=== PATIENT | female | born 1950 | race Caucasian/White ===

== ENCOUNTER → 2016-12-21 | Outpatient (CLI) | payer MEDICARE ==
--- NOTE | 2016-12-22 08:35 | MM ---
Reason for exam: screening (asymptomatic). Last mammogram was performed 1 year and 1 month ago. History: Patient is postmenopausal. Family history of breast cancer in sister at age 69 and breast cancer in mother at age 85. Physical Findings: A clinical breast exam by your physician is recommended on an annual basis and results should be correlated with mammographic findings. MG 3D Screening Mammo W/Cad Bilateral CC and MLO view(s) were taken. Prior study comparison: December 01, 2015, bilateral MG screening mammo w CAD. November 28, 2014, bilateral MG screening mammo w CAD. The breast tissue is extremely dense which could obscure a lesion on mammography. Stable benign calcifications. There is no discrete abnormality. No significant changes when compared with prior studies. ASSESSMENT: Benign, BI-RAD 2 RECOMMENDATION: Routine screening mammogram of both breasts in 1 year.
== END | disposition home or self-care (01) ==
LOC: RADMAMWWP 16:23
PROVIDERS: ATTEND Internal Medicine Geriatric Medicine
DX: Z12.31 Encounter for screening mammogram for malignant neoplasm of breast (principal)
CPT/HCPCS: 77063; G0202

== ENCOUNTER → 2017-01-25 | Outpatient (CLI) | payer MEDICARE ==
--- NOTE | 2017-01-26 13:42 | BD ---
EXAMINATION TYPE: MG DEXA axial skeleton. DATE OF EXAM: 01/25/2017 COMPARISON: 2014 CLINICAL HISTORY: osteoporosis Height: 5'2 Weight: 150 FRAX RISK QUESTIONS: Alcohol (3 or more units per day): no Family History (Parent hip fracture): no Glucocorticoids (More than 3mos): no (Ex: prednisone, prednisolone, methylprednisolone, dexamethasone, and hydrocortisone). History of Fracture in Adulthood: no Secondary Osteoporosis: 1. Type 1 Diabetes: no 2. Hyperthyroidism: no 3. Menopause before 45: no 4. Malnutrition: no 5. Chronic liver disease: no Rheumatoid Arthritis: no Current Tobacco Use: no RISK FACTORS HISTORY OF: Family History of Osteoporosis: Postmenopausal woman: MEDICATIONS: Thyroid Medications: Which medication: Levothyroxine How Lon years Additional Medications: blood pressure, Additional History: osteoporosis EXAM MEASUREMENTS: Bone mineral densitometry was performed using the SWEEPiO System. Bone mineral density as measured about the Lumbar spine is: ----- L1-L4(G/cm2): 1.131 T Score Values are as follows: ----- L2: -1.0 ----- L3: -0.4 ----- L4: 0.1 ----- L1-L4:-0.4 Bone mineral density has: Increased 1.2since study of: 11/28/2014 Bone mineral density about the R hip (g/cm2): 0.774 Bone mineral density about the L hip (g/cm2): 0.842 T Score values are as follows: -----R Neck: -1.9 -----L Neck: -1.4 -----R Total: -1.3 -----L Total: -0.8 Bone mineral density has: Increased 1.9% since study of: 11/28/2014 IMPRESSION: Osteopenia (T Score between -2.5 and -1 as noted by T score values : Josep Hips There is slightly increased risk of fracture and the patient may be considered for treatment. Re-Screen 2-5 years. NOTE: T-SCORE=SD OF THE YOUNG ADULT MEAN.
== END | disposition home or self-care (01) ==
LOC: RADBDWWP 12:32
PROVIDERS: ATTEND Internal Medicine Geriatric Medicine
DX: M85.851 Other specified disorders of bone density and structure, right thigh (principal); M85.852 Other specified disorders of bone density and structure, left thigh
CPT/HCPCS: 77080

== ENCOUNTER → 2017-07-17 | Outpatient (CLI) | payer MEDICARE ==
--- NOTE | 2017-07-17 17:45 | US ---
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 Family his tory of stroke. TECHNIQUE: Carotid duplex ultrasound examination. In direct upper criteria was utilized. 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 EXAM MEASUREMENTS: RIGHT: Peak Systolic Velocity (PSV) cm/sec ----- Right CCA: 54.6 ----- Right ICA: 67.4 ----- Right ECA: 62.3 ICA/CCA ratio: 1.2 RIGHT: End Diastole cm/sec ----- Right CCA: 16.2 ----- Right ICA: 24.2 ----- Right ECA: 11.5 LEFT: Peak Systolic Velocity (PSV) cm/sec ----- Left CCA: 53.9 ----- Left ICA: 56.8 ----- Left ECA: 40.3 ICA/CCA ratio: 1.1 LEFT: End Diastole cm/sec ----- Left CCA: 15.8 ----- Left ICA: 23.1 ----- Left ECA: 8.5 VERTEBRALS (direction of flow): Right Vertebral: Antegrade Left Vertebral: Antegrade IMPRESSION: No hemodynamically significant stenosis appreciated in either internal carotid artery. Criteria for Assigning % of Stenosis / Diameter reduction (Estimation based on the indirect measurements of the internal carotid artery velocities (ICA PSV). 1. Normal (no stenosis)=ICA PSV < 125 cm/s: ratio < 2.0: ICA EDV<40 cm/s. 2. Less than 50% stenosis=ICA PSV < 125 cm/s: ratio < 2.0: ICA EDV<40 cm/s. 3. 50 to 69% stenosis=ICA PSV of 125 to 230 cm/s: ration 2.0 ? 4.0: ICA EDV 40-100 cm/s. 4. Greater than 70% stenosis to near occlusion= ICA PSV > 230 cm/s: ratio > 4.0: ICA EDV > 100 cm/s. 5. Near occlusion= ICA PSV velocities may be low or undetectable: variable ratio and ICA EDV. 6. Total occlusion=unable to detect flow.
--- NOTE | 2017-07-18 10:09 | ECHOF ---
Referral Reason:Stenosis I65.23,I05.8 rheumatic mitral valve dz MEASUREMENTS -------- HEIGHT: 152.4 cm WEIGHT: 68.0 kg BP: 126/64 RVIDd: 2.6 cm (< 3.3) IVSd: 1.0 cm (0.6 - 1.1) LVIDd: 4.4 cm (3.9 - 5.3) LVPWd: 1.0 cm (0.6 - 1.1) IVSs: 1.4 cm LVIDs: 2.9 cm LVPWs: 1.5 cm LA Diam: 3.1 cm (2.7 - 3.8) LAESV Index (A-L): 26.05 ml/m Ao Diam: 3.2 cm (2.0 - 3.7) AV Cusp: 1.9 cm (1.5 - 2.6) MV EXCURSION: 10.738 mm (> 18.000) MV EF SLOPE: 51 mm/s (70 - 150) EPSS: 1.1 cm MV E Domenic: 0.66 m/s MV DecT: 353 ms MV A Domenic: 0.97 m/s MV E/A Ratio: 0.68 RAP: 5.00 mmHg RVSP: 19.65 mmHg FINDINGS -------- Sinus rhythm. This was a technically adequate study. The left ventricular size is normal. Left ventricular wall thickness is normal. Overall left vent ricular systolic function is normal with, an EF between 55 - 60 %. The right ventricle is normal in size. Normal LA size by volume 22+/-6 ml/m2. The right atrium is normal in size. The aortic valve is trileaflet and appears structurally normal. The mitral valve is normal. There is trace to mild mitral regurgitation. Mild tricuspid regurgitation present. Right ventricular systolic pressure is normal at < 35 mmHg. Trace/mild (physiologic) pulmonic regurgitation. The aortic root size is normal. Normal inferior vena cava with normal inspiratory collapse consistent with estimated right atrial pre ssure of 5 mmHg. There is no pericardial effusion. Hepatic cyst 7.8X6.8 cm CONCLUSIONS -------- 1. Sinus rhythm. 2. This was a technically adequate study. 3. The left ventricular size is normal. 4. Left ventricular wall thickness is normal. 5. Overall left ventricular systolic function is normal with, an EF between 55 - 60 %. 6. Normal LA size by volume 22+/-6 ml/m2. 7. The aortic valve is trileaflet and appears structurally normal. 8. There is trace to mild mitral regurgitation. 9. Mild tricuspid regurgitation present. 10. Right ventricular systolic pressure is normal at < 35 mmHg. 11. Trace/mild (physiologic) pulmonic regurgitation. 12. The aortic root size is normal. 13. Normal inferior vena cava with normal inspiratory collapse consistent with estimated right atrial pressure of 5 mmHg. 14. There is no pericardial effusion. 15. Hepatic cyst 7.8X6.8 cm STEREOPTIC PROJECTION TOPOGRAPHER: Sandra Mclaughlin RDCS
== END | disposition home or self-care (01) ==
LOC: RADECHMAIN 14:43
PROVIDERS: ATTEND Internal Medicine Geriatric Medicine
DX: I08.1 Rheumatic disorders of both mitral and tricuspid valves (principal); I65.23 Occlusion and stenosis of bilateral carotid arteries; Q61.01 Congenital single renal cyst
CPT/HCPCS: 93306; 93880

== ENCOUNTER → 2018-01-30 | Outpatient (CLI) | payer MEDICARE ==
--- NOTE | 2018-02-01 09:00 | MM ---
Reason for exam: screening (asymptomatic). Last mammogram was performed 1 year and 1 month ago. History: Patient is postmenopausal. Family history of breast cancer in sister at age 69 and breast cancer in mother at age 85. Physical Findings: A clinical breast exam by your physician is recommended on an annual basis and results should be correlated with mammographic findings. MG 3D Screening Mammo W/Cad Bilateral CC and MLO view(s) were taken. Prior study comparison: December 21, 2016, bilateral MG 3d screening mammo w/cad. December 01, 2015, bilateral MG screening mammo w CAD. The breast tissue is extremely dense which could obscure a lesion on mammography. No significant changes when compared with prior studies. ASSESSMENT: Benign, BI-RAD 2 RECOMMENDATION: Routine screening mammogram of both breasts in 1 year.
== END | disposition home or self-care (01) ==
LOC: RADMAMWWP 14:22
PROVIDERS: ATTEND Internal Medicine Geriatric Medicine
DX: Z12.31 Encounter for screening mammogram for malignant neoplasm of breast (principal)
CPT/HCPCS: 77063; 77067

== ENCOUNTER 2018-09-11 15:55 | Observation (INO) | payer MEDICARE ==
--- NOTE | 2018-09-11 16:25 | ED ---
General Adult HPI - General Chief complaint: Chest Pain Stated complaint: chest pain Time Seen by Provider: 09/11/18 16:06 Source: patient, EMS Mode of arrival: EMS Limitations: no limitations - History of Present Illness Initial comments: Dictation was produced using [employer] dictation software. please excuse any grammatical, word or spelling errors. Chief Complaint: 67-year-old female past medical history of hypertension and hypothyroidism presents with episode of chest pain. History of Present Illness: She is 67-year-old female with past medical history of hypertension and hypothyroidism. Patient states that at 2:45 PM she was having dinner. She then experienced a pressure-like sensation in her chest. She then became nauseated and had clammy feeling in her hands. Denies any diaphoresis but she did complain of sweaty palms. Denies any cardiac history. She states that the pain lasted for approximately 30 minutes. Denies any radiation to her arm shoulders or jaw. Patient has otherwise been feeling well. Denies any significant family cardiac history. EMS was called and patient was given aspirin transferred to the emergency department. Patient states that symptoms improved however she still has some slight discomfort. The ROS documented in this emergency department record has been reviewed and confirmed by me. Those systems with pertinent positive or negative responses have been documented in the HPI. All other systems are other negative and/or noncontributory. PHYSICAL EXAM: General Impression: Alert and oriented x3, not in acute distress HEENT: Normocephalic atraumatic, extra-ocular movements intact, pupils equal and reactive to light bilaterally, mucous membranes moist. Cardiovascular: Heart regular rate and rhythm, S1&S2 audible, no murmurs, rubs or gallops Chest: Lungs clear to auscultation bilaterally, no rhonchi, no wheeze, no rales Abdomen: Bowel sounds present, abdomen soft, non-tender, non-distended, no organomegaly Musculoskeletal: Pulses present and equal in all extremities, no peripheral edema Motor: no focal deficits noted Neurological: CN II-XII grossly intact, no focal motor or sensory deficits noted Skin: Intact with no visualized rashes Psych: Normal affect and mood ED course: 67-year-old female with ACS-type symptoms. Vital signs upon arrival are within acceptable limits. Patient has HPI concerning for ACS-type symptoms. EKG shows nonspecific changes. Laboratory evaluation obtained. Patient has mild hypokalemia of 3.4. Cardiac enzymes negative. Chest x-ray shows findings to support cardiogenic pulmonary edema. Patient hasn't normal prematurity peptide. Patient reevaluated and is pain-free at the moment. Repeat EKG was performed demonstrating nonspecific EKG changes. Patient really had received aspirin per EMS. Patient is moderate risk. I believe patient would benefit from observation admission or serial troponins and cardiology consultation. Patient is understandable and agreeable to disposition. EKG interpretation: Ventricular rate 68, normal sinus rhythm, AR interval 148, QRS 96, QTC 450. No AR prolongation, no QTC prolongation, there are no ST changes however there is T-wave inversion in aVL. - Related Data Home Medications Medication Instructions Recorded Confirmed ALPRAZolam [Xanax] 0.25 mg PO BID PRN 09/11/18 09/11/18 Cholecalciferol [Vitamin D3] 5,000 unit PO DAILY 09/11/18 09/11/18 Cyclobenzaprine [Flexeril] 10 mg PO TID PRN 09/11/18 09/11/18 Hydrochlorothiazide [Hydrodiuril] 12.5 mg PO DAILY 09/11/18 09/11/18 Ibuprofen [Advil] 200 mg PO Q6HR PRN 09/11/18 09/11/18 Lactobacillus Acidophilus 1 tab PO DAILY 09/11/18 09/11/18 [Acidophilus] Levothyroxine Sodium [Synthroid] 25 mcg PO DAILY 09/11/18 09/11/18 Losartan Potassium 50 mg PO DAILY 09/11/18 09/11/18 Naproxen 500 mg PO BID PRN 09/11/18 09/11/18 Allergies Allergy/AdvReac Type Severity Reaction Status Date / Time cefuroxime [From Ceftin] Allergy Unknown Verified 09/11/18 15:59 Review of Systems ROS Statement: Those systems with pertinent positive or pertinent negative responses have been documented in the HPI. ROS Other: All systems not noted in ROS Statement are negative. Past Medical History Past Medical History: Hypertension, Thyroid Disorder Additional Past Medical History / Comment(s): hypothyroidism, scoliosis, kyphosis, raynauds, arthritis. History of Any Multi-Drug Resistant Organisms: None Reported Past Surgical History: Hysterectomy Additional Past Surgical History / Comment(s): carpal david, ganglion cyst removed on wrist. Past Psychological History: No Psychological Hx Reported Smoking Status: Never smoker Past Alcohol Use History: Occasional Past Drug Use History: None Reported General Exam Limitations: no limitations Course Vital Signs 09/11/18 16:09 Temperature 98.1 F Pulse Rate 68 Respiratory 18 Rate Blood Pressure 153/81 O2 Sat by Pulse 97 Oximetry Medical Decision Making - Lab Data Result diagrams: 09/11/18 16:05 09/11/18 16:05 Lab Results 09/11/18 09/11/18 09/11/18 Range/Units 16:05 16:05 16:05 WBC 6.7 (3.8-10.6) k/uL RBC 3.89 (3.80-5.40) m/uL Hgb 12.7 (11.4-16.0) gm/dL Hct 36.8 (34.0-46.0) % MCV 94.7 (80.0-100.0) fL MCH 32.7 (25.0-35.0) pg MCHC 34.6 (31.0-37.0) g/dL RDW 13.1 (11.5-15.5) % Plt Count 237 (150-450) k/uL Neutrophils % 62 % Lymphocytes % 30 % Monocytes % 4 % Eosinophils % 2 % Basophils % 0 % Neutrophils # 4.1 (1.3-7.7) k/uL Lymphocytes # 2.0 (1.0-4.8) k/uL Monocytes # 0.3 (0-1.0) k/uL Eosinophils # 0.1 (0-0.7) k/uL Basophils # 0.0 (0-0.2) k/uL PT 9.8 (9.0-12.0) sec INR 0.9 (<1.2) APTT 21.6 L (22.0-30.0) sec Sodium 137 (137-145) mmol/L Potassium 3.4 L (3.5-5.1) mmol/L Chloride 101 (98-107) mmol/L Carbon Dioxide 29 (22-30) mmol/L Anion Gap 7 mmol/L BUN 15 (7-17) mg/dL Creatinine 0.64 (0.52-1.04) mg/dL Est GFR (CKD-EPI)AfAm >90 (>60 ml/min/1.73 sqM) Est GFR (CKD-EPI)NonAf >90 (>60 ml/min/1.73 sqM) Glucose 134 H (74-99) mg/dL Calcium 9.5 (8.4-10.2) mg/dL Magnesium 1.9 (1.6-2.3) mg/dL Total Bilirubin 0.7 (0.2-1.3) mg/dL AST 33 (14-36) U/L ALT 45 (9-52) U/L Alkaline Phosphatase 72 (38-126) U/L Troponin I (0.000-0.034) ng/mL NT-Pro-B Natriuret Pep pg/mL Total Protein 6.8 (6.3-8.2) g/dL Albumin 4.3 (3.5-5.0) g/dL Lipase 99 (23-300) U/L 09/11/18 09/11/18 Range/Units 16:05 16:05 WBC (3.8-10.6) k/uL RBC (3.80-5.40) m/uL Hgb (11.4-16.0) gm/dL Hct (34.0-46.0) % MCV (80.0-100.0) fL MCH (25.0-35.0) pg MCHC (31.0-37.0) g/dL RDW (11.5-15.5) % Plt Count (150-450) k/uL Neutrophils % % Lymphocytes % % Monocytes % % Eosinophils % % Basophils % % Neutrophils # (1.3-7.7) k/uL Lymphocytes # (1.0-4.8) k/uL Monocytes # (0-1.0) k/uL Eosinophils # (0-0.7) k/uL Basophils # (0-0.2) k/uL PT (9.0-12.0) sec INR (<1.2) APTT (22.0-30.0) sec Sodium (137-145) mmol/L Potassium (3.5-5.1) mmol/L Chloride (98-107) mmol/L Carbon Dioxide (22-30) mmol/L Anion Gap mmol/L BUN (7-17) mg/dL Creatinine (0.52-1.04) mg/dL Est GFR (CKD-EPI)AfAm (>60 ml/min/1.73 sqM) Est GFR (CKD-EPI)NonAf (>60 ml/min/1.73 sqM) Glucose (74-99) mg/dL Calcium (8.4-10.2) mg/dL Magnesium (1.6-2.3) mg/dL Total Bilirubin (0.2-1.3) mg/dL AST (14-36) U/L ALT (9-52) U/L Alkaline Phosphatase (38-126) U/L Troponin I <0.012 (0.000-0.034) ng/mL NT-Pro-B Natriuret Pep 54 pg/mL Total Protein (6.3-8.2) g/dL Albumin (3.5-5.0) g/dL Lipase (23-300) U/L Disposition Clinical Impression: Chest pain Disposition: ADMITTED IP TO THIS HOSP Condition: Fair Referrals: Shayne Severino MD [Primary Care Provider] - 1-2 days Decision Time: 18:22
[2018-09-11 16:33] LABS: Basophils % (A) 0 %; Eosinophils # (A) 0.1 k/uL (0-0.7); Eosinophils % (A) 2 %; HCT 36.8 % (34.0-46.0); HGB 12.7 gm/dL (11.4-16.0); Lymphocytes % (A) 30 %; MCH 32.7 pg (25.0-35.0); MCHC 34.6 g/dL (31.0-37.0); MCV 94.7 fL (80.0-100.0); Mean Platelet Volume 7.5; Monocytes # (A) 0.3 k/uL (0-1.0); Monocytes % (A) 4 %; Neutrophils # (A) 4.1 k/uL (1.3-7.7); Neutrophils % (A) 62 %; Platelet Count 237 k/uL (150-450); RBC 3.89 m/uL (3.80-5.40); RDW 13.1 % (11.5-15.5); WBC 6.7 k/uL (3.8-10.6)
[2018-09-11 16:41] LABS: ALT 45 U/L (9-52); AST 33 U/L (14-36); Albumin 4.3 g/dL (3.5-5.0); Alkaline Phosphatase 72 U/L (38-126); Anion Gap 7 mmol/L; Blood Urea Nitrogen 15 mg/dL (7-17); Calcium 9.5 mg/dL (8.4-10.2); Carbon Dioxide 29 mmol/L (22-30); Chloride 101 mmol/L (98-107); Glucose 134 mg/dL (74-99); Lipase 99 U/L (23-300); Magnesium 1.9 mg/dL (1.6-2.3); Potassium 3.4 mmol/L (3.5-5.1); Sodium 137 mmol/L (137-145); Total Bilirubin 0.7 mg/dL (0.2-1.3); Total Protein 6.8 g/dL (6.3-8.2)
[2018-09-11 16:49] LABS: INR 0.9 (<1.2); Prothrombin Time 9.8 sec (9.0-12.0)
--- NOTE | 2018-09-11 16:53 | XR ---
EXAMINATION: XR chest 2V DATE AND TIME: 09/11/2018 4:37 PM CLINICAL INDICATION: PHH; Chest Pain TECHNIQUE: Frontal and lateral radiographs COMPARISON: None FINDINGS: There is a fine reticular pattern of increased density throughout the lungs which silhouett es the pulmonary vasculature to a mild degree and is associated with occasional septal lines at the p eriphery. Changes are consistent with mild interstitial phase pulmonary edema. The lungs are negative for atelectasis or evidence of pneumonia. The pleural spaces are negative. The cardiac silhouette is widely enlarged. The remainder of the mediastinal silhouette is unremarkabl e. The skeletal structures and soft tissues are negative for acute findings. IMPRESSION: Mild interstitial phase pulmonary edema, presumably cardiogenic etiology.
[2018-09-11 17:01] LABS: Partial Thromboplastin Time 21.6 sec (22.0-30.0)
[2018-09-11] MEDS ORDERED: NITROGLYCERIN SL TABS 0.4 MG TAB SUBLINGUAL PRN (18:22)
[2018-09-11] MEDS ORDERED: ASPIRIN 81 MG PO STA (18:22)
[2018-09-11] MEDS ORDERED: CYCLOBENZAPRINE 10 MG TAB PO PRN (21:37)
[2018-09-11] MEDS ORDERED: ALPRAZolam 0.25 MG TAB PO PRN (21:37)
[2018-09-12 03:53] LABS: Cholesterol 194 mg/dL (<200); HDL Cholesterol 47 mg/dL (40-60); LDL Cholesterol,Calculated 112 mg/dL (0-99); Triglycerides 177 mg/dL (<150)
[2018-09-12] MEDS: HEPARIN SODIUM,PORCINE 5,000 UNIT/ML 1 ML VIAL SQ SCH ×2 (03:55→12:48)
[2018-09-12 04:06] VITALS: RESP 18
[2018-09-12] MEDS ORDERED: LEVOTHYROXINE 25 MCG TAB PO SCH (06:30)
[2018-09-12] MEDS ORDERED: CHOLECALCIFEROL 1,000 UNIT TAB PO SCH (09:00)
[2018-09-12] MEDS ORDERED: HYDROCHLOROTHIAZIDE 12.5 MG CAP PO SCH (09:00)
[2018-09-12] MEDS ORDERED: LOSARTAN 50 MG TAB PO SCH (09:00)
--- NOTE | 2018-09-12 09:27 | US ---
EXAMINATION TYPE: US gallbladder DATE OF EXAM: 09/12/2018 COMPARISON: NONE CLINICAL HISTORY: cp nausea after eating. Pain after eating, NPO EXAM MEASUREMENTS: Liver Length: 19.7 cm Gallbladder Wall: 0.2 cm CBD: 0.4 cm Right Kidney: 10.2 x 4.3 x 4.0 cm Pancreas: Appears echogenic in appearance, limited visualization of tail due to overlying bowel gas Liver: Appears enlarged and coarse. Multiple cystic appearing lesions visualized. Largest in right l obe - 1.3 x 1.1 x 1.0 cm. Largest on left - 7.1 x 8.0 x 6.9 cm. Second cystic appearing lesion on l eft - 2.9 x 3.6 x 2.7 cm Gallbladder: Echogenic focus with shadow - 0.8 cm. Small amount of sludge seen, best visualized LLD . Probable focal fatty infiltration around the gallbladder fossa. Evidence for sonographic Gusman's sign: neg CBD: wnl Right Kidney: wnl IMPRESSION: 1. Cholelithiasis and biliary sludge without sonographic findings of acute cholecystitis. Probable fo julia fatty infiltration is seen surrounding the gallbladder fossa. 2. Multiple simple appearing hepatic cysts and mild hepatomegaly.
--- NOTE | 2018-09-12 10:58 | P.CRDCN ---
History of Present Illness History of present illness: This is a pleasant 67-year-old female past medical history significant for hypertension, hypothyroidism and Raynaud's disease. She denies history of coronary artery disease and does not follow regularly with a health concierge. We have been asked to see her in consultation secondary to an episode of chest discomfort yesterday. She states she had a late lunch yesterday with family in town. They ate fried chicken and asparagus. Shortly after eating she felt an intense tight full feeling in her chest associated with nausea, diaphroesis and she states she became acutely pale. This persisted for 30 minutes without relief. She called ems and was given nitro, which did not take away pain. Ultimately discomfort lasted a couple of hours and slowly improved on its own. She has significant family history with both brothers and father had heart disease in their 50's. She was seen and examined resting comfortably in bed in no acute distress. Her chest discomfort has subsided. EKG reveals sinus mechanism with no acute ST or T wave abnormalities noted. Chest x-ray report is read as mild pulmonary edema however appears normal with no acute cardiopulmonary process. Laboratory data reviewed, cardiac enzymes negative 3, LDL 112, and T proBNP 54 and creatinine 0.64. Most recent echocardiogram obtained July 2017 revealed preserved left ventricular systolic function with ejection fraction 55-60%. Current cardiac medications include losartan 50 mg daily and hydrochlorothiazide 12.5 mg daily. At the time of my exam: CONSTITUTIONAL: Denies fever. Denies chills. EYES: Denies blurred vision. Denies vision changes. Denies eye pain. EARS, NOSE, MOUTH & THROAT: Denies headache. Denies sore throat. Denies ear pain. CARDIOVASCULAR: Denies chest pain. Denies shortness of breath. Denies orthopnea. Denies PND. Denies palpitations. RESPIRATORY: Denies cough. GASTROINTESTINAL: Denies abdominal pain. Denies diarrhea. Denies constipation. Denies nausea. Denies vomiting. MUSCULOSKELETAL: Denies myalgias. INTEGUMENTARY: Denies pruitis. Denies rash. NEUROLOGIC: Denies numbness. Denies tingling. Denies weakness. PSYCHIATRIC: Denies anxiety. Denies depression. ENDOCRINE: Denies fatigue. Denies weight change. Denies polydipsia. Denies polyurina. GENITOURINARY: Denies burning, hematuria or urgency with micturation. HEMATOLOGIC: Denies history of anemia. Denies bleeding. Blood pressure 133/79 heart rate 64 afebrile maintaining oxygen saturation on room air GENERAL: This is a 67-year-old female in no apparent distress at the time of my examination. HEENT: Head is atraumatic, normocephalic. Pupils are equal, round. Sclerae anicteric. Conjunctivae are clear. Mucous membranes of the mouth are moist. Neck is supple. There is no jugular venous distention. No carotid bruit is heard. LUNGS: Clear to auscultation no wheezes, rales or rhonchi. No chest wall te nderness is noted on palpation or with deep breathing. HEART: Regular rate and rhythm without murmurs, rubs or gallops. S1 and S2 heard. ABDOMEN: Soft, nontender. Bowel sounds are heard. No organomegaly noted. EXTREMITIES: No evidence of peripheral edema and no calf tenderness noted. VASCULAR: Radial and dorsalis pedis pulses palpated, no evidence of clubbing. NEUROLOGIC: Patient is awake, alert and oriented x3. ASSESSMENT Chest pain, atypical for angina. Possibly associated to an acute gallbladder attack. An acute coronary event has been ruled out. Hypertension Hypothyroidism Significant family history for premature coronary artery disease PLAN An coronary event has been ruled out. Obtain 2-D echocardiogram and Doppler study to assess cardiac structure and function. Check an ultrasound of her gallbladder. Perform stress echocardiogram to assess for stress-induced cardiac ischemia. Thank you kindly for this consultation. Nurse Practitioner note has been reviewed, I agree with a documented findings and plan of care. Patient was seen and examined. Past Medical History Past Medical History: Hypertension, Thyroid Disorder Additional Past Medical History / Comment(s): hypothyroidism, scoliosis, kyphosis, raynauds, arthritis. History of Any Multi-Drug Resistant Organisms: None Reported Past Surgical History: Hysterectomy Additional Past Surgical History / Comment(s): carpal david, ganglion cyst removed on wrist. Past Psychological History: No Psychological Hx Reported Smoking Status: Never smoker Past Alcohol Use History: Occasional Past Drug Use History: None Reported Medications and Allergies Home Medications Medication Instructions Recorded Confirmed Type ALPRAZolam [Xanax] 0.25 mg PO BID PRN 09/11/18 09/11/18 History Cholecalciferol [Vitamin D3] 5,000 unit PO DAILY 09/11/18 09/11/18 History Cyclobenzaprine [Flexeril] 10 mg PO TID PRN 09/11/18 09/11/18 History Hydrochlorothiazide [Hydrodiuril] 12.5 mg PO DAILY 09/11/18 09/11/18 History Ibuprofen [Advil] 200 mg PO Q6HR PRN 09/11/18 09/11/18 History Lactobacillus Acidophilus 1 tab PO DAILY 09/11/18 09/11/18 History [Acidophilus] Levothyroxine Sodium [Synthroid] 25 mcg PO DAILY 09/11/18 09/11/18 History Losartan Potassium 50 mg PO DAILY 09/11/18 09/11/18 History Naproxen 500 mg PO BID PRN 09/11/18 09/11/18 History Allergies Allergy/AdvReac Type Severity Reaction Status Date / Time cefuroxime [From Ceftin] Allergy Unknown Verified 09/11/18 15:59 Physical Exam Vitals: Vital Signs Temp Pulse Pulse Resp BP BP Pulse Ox 09/12/18 07:15 98.1 F 64 18 133/79 96 09/12/18 04:05 98.3 F 65 18 143/80 96 09/12/18 03:40 77 17 09/12/18 00:26 98 F 74 18 160/79 96 09/12/18 00:00 65 17 09/11/18 20:00 17 09/11/18 19:41 98.4 F 74 18 184/87 97 09/11/18 18:51 76 18 150/83 96 09/11/18 18:40 18 09/11/18 16:09 98.1 F 68 18 153/81 97 Intake and Output 09/11/18 09/12/18 09/12/18 22:59 06:59 14:59 Other: Voiding Method Toilet Toilet # Voids 1 1 Weight 67.585 kg Results 09/11/18 16:05 09/11/18 16:05 Cardiac Enzymes 09/11/18 09/11/18 09/11/18 Range/Units 16:05 16:05 22:51 AST 33 (14-36) U/L Troponin I <0.012 <0.012 (0.000-0.034) ng/mL 09/12/18 Range/Units 04:15 AST (14-36) U/L Troponin I <0.012 (0.000-0.034) ng/mL Coagulation 09/11/18 Range/Units 16:05 PT 9.8 (9.0-12.0) sec APTT 21.6 L (22.0-30.0) sec Lipids 09/11/18 Range/Units 16:05 Triglycerides 177 H (<150) mg/dL Cholesterol 194 (<200) mg/dL HDL Cholesterol 47 (40-60) mg/dL CBC 09/11/18 Range/Units 16:05 WBC 6.7 (3.8-10.6) k/uL RBC 3.89 (3.80-5.40) m/uL Hgb 12.7 (11.4-16.0) gm/dL Hct 36.8 (34.0-46.0) % Plt Count 237 (150-450) k/uL Comprehensive Metabolic Panel 09/11/18 Range/Units 16:05 Sodium 137 (137-145) mmol/L Potassium 3.4 L (3.5-5.1) mmol/L Chloride 101 (98-107) mmol/L Carbon Dioxide 29 (22-30) mmol/L BUN 15 (7-17) mg/dL Creatinine 0.64 (0.52-1.04) mg/dL Glucose 134 H (74-99) mg/dL Calcium 9.5 (8.4-10.2) mg/dL AST 33 (14-36) U/L ALT 45 (9-52) U/L Alkaline Phosphatase 72 (38-126) U/L Total Protein 6.8 (6.3-8.2) g/dL Albumin 4.3 (3.5-5.0) g/dL Current Medications Generic Name Dose Route Start Last Admin Trade Name Freq PRN Reason Stop Dose Admin Alprazolam 0.25 mg 09/11/18 21:37 Xanax PO BID PRN Anxiety Cholecalciferol 5,000 unit 09/12/18 09:00 Vitamin D3 PO DAILY REPLACED BY [facility] Cyclobenzaprine HCl 10 mg 09/11/18 21:37 Flexeril PO TID PRN Muscle Spasm Heparin Sodium (Porcine) 5,000 unit 09/12/18 00:00 09/12/18 03:55 Heparin SQ Not Given Q8HR MICHAEL Hydrochlorothiazide 12.5 mg 09/12/18 09:00 Hydrodiuril PO DAILY REPLACED BY [facility] Levothyroxine Sodium 25 mcg 09/12/18 06:30 09/12/18 06:21 Synthroid PO 25 mcg DAILY@0630 MICHAEL Administration Losartan Potassium 50 mg 09/12/18 09:00 Cozaar PO DAILY MICHAEL Nitroglycerin 0.4 mg 09/11/18 18:22 Nitrostat SUBLINGUAL Q5M PRN Chest Pain Intake and Output 09/11/18 09/12/18 09/12/18 22:59 06:59 14:59 Other: Voiding Method Toilet Toilet # Voids 1 1 Weight 67.585 kg 09/11/18 16:05 09/11/18 16:05
--- NOTE | 2018-09-12 12:53 | ECHOS ---
STRESS ECHOCARDIOGRAM DATE OF SERVICE: 09/12/2018 INDICATIONS: Chest pain. MEDICATIONS: BASELINE HEART RATE: 65 BASELINE BLOOD PRESSURE: 134/63 MAXIMUM HEART RATE: 156 MAXIMUM BLOOD PRESSURE: 181/68 85% MPHR: 131 100% MPHR: 154 METS: 7.7 MAXIMUM STAGE REACHED: III TOTAL EXERCISE TIME: 6 minutes and 30 seconds. CLINICAL INFORMATION: Patient was exercised for a total period of 6 minutes and 30 seconds a peak heart rate of 156 was achieved. Maximum blood pressure of 181/68 mmHg was noted. Resting EKG shows normal sinus rhythm with normal DC interval and QRS duration and normal ST-T waves. No ST-segment depression suggestive of ischemia is noted. Occasional PVCs and PACs were noted. The baseline echocardiographic images reveal normal left ventricular chamber size with normal left ventricular systolic function. In the immediate postexercise period, normal increase in the wall thickness and contractility is noted. FINAL IMPRESSION: This stress echocardiographic study is negative for stress-induced ischemia. EKG portion of the stress is not suggestive of ischemia. Patient did not complain of any chest pain during the test. The patient's exercise tolerance is normal. MMODL / IJN: [id number] /
[2018-09-12 13:05] VITALS: BP 135/82; PULSE 67; TEMP 98.3
--- NOTE | 2018-09-12 14:34 | P.HPIM ---
History of Present Illness H&P Date: 09/12/18 HISTORY AND PHYSICAL AND DISCHARGE SUMMARY: This is a 67-year-old female patient of Dr. Severino with past medical history of hypertension, hypothyroidism, scoliosis, Raynaud's, osteoarthritis obstructive sleep apnea on CPAP, generalized anxiety disorder. Patient developed chest discomfort after she had lunch and went into the kitchen. By the time EMS arrived, pain was starting to go away. She did take an aspirin before they arrived and nitroglycerin with EMS. Her pain is gone at this point. She describes it as a pressure. Patient also relates that she has been on [employer] for the past month. She denies any cardiac history and does not follow with a transmitter engineer in charge. Patient came into [facility] for evaluation. EKG was sinus rhythm with no acute ST-T wave changes. Chest x-ray revealed mild interstitia pulmonary edema presumably cardiogenic etiology. The patient was placed in the observation unit and cardiology consult requested.. CBC is within normal limits. Potassium 3.4, blood sugar 134. Troponins of the negative on 3 draws. Triglycerides 177, cholesterol 194, LDL 112, HDL 47. Lipase 99. Liver function tests within normal limits. She has been afebrile. Gallbladder ultrasound reveals cholelithiasis and biliary sludge without evidence of acute cholecystitis. Probable focal fatty infiltration surrounding the gallbladder fossa. Multiple simple appearing hepatic cyst and mild hepatomegaly. Echocardiogram reveals ejection fraction of Patient has been cleared for discharge by cardiology and will be discharged home today in stable condition. Discharge Medication List ALPRAZolam [Xanax] 0.25 mg PO BID PRN 09/11/18 [History] Cholecalciferol [Vitamin D3] 5,000 unit PO DAILY 09/11/18 [History] Cyclobenzaprine [Flexeril] 10 mg PO TID PRN 09/11/18 [History] Hydrochlorothiazide [Hydrodiuril] 12.5 mg PO DAILY 09/11/18 [History] Lactobacillus Acidophilus [Acidophilus] 1 tab PO DAILY 09/11/18 [History] Levothyroxine Sodium [Synthroid] 25 mcg PO DAILY 09/11/18 [History] Losartan Potassium 50 mg PO DAILY 09/11/18 [History] Aspirin EC [Ecotrin Low Dose] 81 mg PO DAILY #30 tablet. 09/12/18 [Rx] Celecoxib [CeleBREX] 100 mg PO BID #60 cap 09/12/18 [Rx] Review of Systems All systems: negative Constitutional: Denies anorexia, Denies chills, Denies fatigue, Denies fever, Denies lethargy, Denies malaise, Denies poor appetite, Denies weakness Eyes: denies blurred vision, denies pain Ears, nose, mouth and throat: Denies dysphagia, Denies headache, Denies sore throat, Denies vertigo Cardiovascular: Reports chest pain, Denies decreased exercise tolerance, Denies dyspnea on exertion, Denies lightheadedness, Denies palpitations, Denies shortness of breath, Denies syncope Respiratory: Denies cough, Denies cough with sputum, Denies dyspnea, Denies excessive sputum, Denies hemoptysis, Denies home oxygen, Denies wheezing Gastrointestinal: Denies abdominal pain, Denies diarrhea, Denies loss of appetite, Denies nausea, Denies vomiting Genitourinary: Denies dysuria, Denies hematuria Musculoskeletal: Denies frequent falls, Denies gait dysfunction, Denies myalgias Integumentary: Denies pruritus, Denies rash, Denies wounds Neurological: Denies numbness, Denies weakness Psychiatric: Denies anxiety, Denies depression Endocrine: Denies fatigue, Denies weight change Past Medical History Past Medical History: Hypertension, Thyroid Disorder Additional Past Medical History / Comment(s): hypothyroidism, scoliosis, kyphosis, raynauds, OA, SCOTTIE on CPAP. History of Any Multi-Drug Resistant Organisms: None Reported Past Surgical History: Hysterectomy Additional Past Surgical History / Comment(s): carpal david, ganglion cyst removed on wrist. Past Psychological History: No Psychological Hx Reported, Anxiety Smoking Status: Never smoker Past Alcohol Use History: Occasional Additional Past Alcohol Use History / Comment(s): The patient was smoking 27 years ago. She denies any illicit drug use. She drinks alcohol about 3 times per week. She was at home with her . She does have a CPAP. No oxygen or nebulizer. No devices for ambulation. Past Drug Use History: None Reported - Past Family History Father Additional Family Medical History / Comment(s): Father at age 54 from a myocardial infarction. Mother Additional Family Medical History / Comment(s): Mother at age 90 from old age. She had history of hypertension and breast cancer. Brother(s) Additional Family Medical History / Comment(s): The patient has 2 brothers with coronary artery disease and one has suffered from a stroke. Sister(s) Additional Family Medical History / Comment(s): Patient has one sister with history of breast cancer and hypertension. Patient has 3 sons with no major medical problems. Medications and Allergies Home Medications Medication Instructions Recorded Confirmed Type ALPRAZolam [Xanax] 0.25 mg PO BID PRN 09/11/18 09/11/18 History Cholecalciferol [Vitamin D3] 5,000 unit PO DAILY 09/11/18 09/11/18 History Cyclobenzaprine [Flexeril] 10 mg PO TID PRN 09/11/18 09/11/18 History Hydrochlorothiazide [Hydrodiuril] 12.5 mg PO DAILY 09/11/18 09/11/18 History Lactobacillus Acidophilus 1 tab PO DAILY 09/11/18 09/11/18 History [Acidophilus] Levothyroxine Sodium [Synthroid] 25 mcg PO DAILY 09/11/18 09/11/18 History Losartan Potassium 50 mg PO DAILY 09/11/18 09/11/18 History Aspirin EC [Ecotrin Low Dose] 81 mg PO DAILY #30 tablet. 09/12/18 Rx Celecoxib [CeleBREX] 100 mg PO BID #60 cap 09/12/18 Rx Allergies Allergy/AdvReac Type Severity Reaction Status Date / Time cefuroxime [From Ceftin] Allergy Unknown Verified 09/11/18 15:59 Physical Exam Vitals: Vital Signs Temp Pulse Pulse Resp BP BP Pulse Ox 09/12/18 07:15 98.1 F 64 18 133/79 96 09/12/18 04:05 98.3 F 65 18 143/80 96 09/12/18 03:40 77 17 09/12/18 00:26 98 F 74 18 160/79 96 09/12/18 00:00 65 17 09/11/18 20:00 17 09/11/18 19:41 98.4 F 74 18 184/87 97 09/11/18 18:51 76 18 150/83 96 09/11/18 18:40 18 09/11/18 16:09 98.1 F 68 18 153/81 97 Intake and Output 09/11/18 09/12/18 09/12/18 22:59 06:59 14:59 Other: Voiding Method Toilet Toilet Toilet # Voids 1 1 Weight 67.585 kg Gen: This is a 67-year-old female. She is resting in bed and appears to be comfortable and in no acute distress. HEENT: Head is atraumatic, normocephalic. Pupils equal, round. Sclerae is anicteric. NECK: Supple. No JVD. No lymphadenopathy. No thyromegaly. LUNGS: Clear to auscultation. No wheezes or rhonchi. No intercostal retr actions. HEART: Regular rate and rhythm. No murmur. ABDOMEN: Soft. Bowel sounds are present. No masses. No tenderness. EXTREMITIES: No pedal edema. No calf tenderness. NEUROLOGICAL: Patient is awake, alert and oriented x3. Cranial nerves 2 through 12 are grossly intact. Results CBC & Chem 7: 09/11/18 16:05 09/11/18 16:05 Labs: Abnormal Lab Results - Last 24 Hours (Table) 09/11/18 09/11/18 09/11/18 Range/Units 16:05 16:05 16:05 APTT 21.6 L (22.0-30.0) sec Potassium 3.4 L (3.5-5.1) mmol/L Glucose 134 H (74-99) mg/dL Triglycerides 177 H (<150) mg/dL LDL Cholesterol, Calc 112 H (0-99) mg/dL Thrombosis Risk Factor Assmnt - Choose All That Apply Each Factor Represents 1 point: Obesity (BMI >25) Each Risk Factor Represents 2 Points: Age 61-74 years Thrombosis Risk Factor Assessment Total Risk Factor Score: 3 Thrombosis Risk Factor Assessment Level: Moderate Risk Assessment and Plan Plan: 1. Chest pain. Troponins of been negative. Echocardiogram as above. Cardiology consult appreciated. Acute coronary syndrome ruled out. Chest pain most likely secondary to gallstones. Patient recommended for low-fat diet and if she has any persistent symptoms, follow up with her PCP for referral to general surgeon. 2. Hypertension. Continue losartan 50 mg daily and hydrochlorothiazide 12.5 mg daily. 3. Hypothyroidism. Continue levothyroxine 25 g daily. 4. Vitamin D deficiency. Continue supplement. 5. Generalized anxiety disorder. Continue Xanax 0.25 mg twice daily as needed. 6. DVT prophylaxis. Heparin subcu. Patient placed in the observation unit. Discharge plan: Return home Impression and plan of care have been directed as dictated by the signing physician. Macy Gómez nurse practitioner acting as scribe for signing physician.
== END 2018-09-12 14:40 | disposition home or self-care (01) ==
LOC: EC 15:55 → 1SOBS 18:22
PROVIDERS: ADMIT Family Medicine; ATTEND Family Medicine
DX: R07.89 Other chest pain (principal); I10 Essential (primary) hypertension; E03.9 Hypothyroidism, unspecified; E55.9 Vitamin D deficiency, unspecified; E87.6 Hypokalemia; F41.1 Generalized anxiety disorder; M41.9 Scoliosis, unspecified; I73.00 Raynaud's syndrome without gangrene; K80.20 Calculus of gallbladder without cholecystitis without obstruction; K76.89 Other specified diseases of liver; G47.33 Obstructive sleep apnea (adult) (pediatric); Z88.1 Allergy status to other antibiotic agents; Z90.710 Acquired absence of both cervix and uterus; Z79.899 Other long term (current) drug therapy; Z79.890 Hormone replacement therapy; Z79.82 Long term (current) use of aspirin; Z99.89 Dependence on other enabling machines and devices; Z82.49 Family history of ischemic heart disease and other diseases of the circulatory system; Z82.3 Family history of stroke; Z80.3 Family history of malignant neoplasm of breast
CPT/HCPCS: 96372; 99285; 36415; 93005; 83880; 80061; 80053; 83690; 83735; 84484 ×2; 85025; 85610; 85730; 71046; 76705; G0378 ×2; C8930; J1644; 93351

== ENCOUNTER 2018-12-14 08:36 | Day surgery (SDC) | payer MEDICARE ==
[2018-12-13 08:50] VITALS: BMI 28.3
[~2018-12-14 08:36] MED LIST: DEXAMETHASONE SOD PHOSPHATE 10 MG/ML 1 ML VIAL IV ONE; HEPARIN SODIUM,PORCINE 5,000 UNIT/ML 1 ML VIAL SQ ONE; LACTATED RINGERS 1,000 ML IV SCH; MIDAZOLAM 2 MG/2 ML VIAL IV PRN; ONDANSETRON 4 MG/2 ML VIAL IVP ONE; SCOPOLAMINE 1.5MG/72HR PATCH TRANSDERM ONE; ceFAZolin IN SWFI 2 GM/20 ML SYRINGE IVP ONE; fentaNYL (PF) 50 MCG/ML 2 ML AMP IV PRN
[2018-12-14] MEDS ORDERED: CLINDAMYCIN 900 MG in DEXTROSE 5% IN WATER 50 ML IVPB ONE ×2 (09:15)
[2018-12-14] MEDS ORDERED: GENTAMICIN 270 MG in SODIUM CHLORIDE 0.9% 100 ML IVPB ONE (09:15)
[2018-12-14] MEDS ORDERED: BUPIVACAINE (PF) 0.25% 30 ML VIAL SQ ONE ×3 (10:03→10:29)
[2018-12-14] MEDS ORDERED: NEOSTIGMINE 1 MG/ML 10 ML VIAL ONE (10:04)
[2018-12-14] MEDS ORDERED: MIDAZOLAM 2 MG/2 ML VIAL ONE (10:04)
[2018-12-14] MEDS ORDERED: KETOROLAC 30 MG/ML 1 ML VIAL ONE (10:04)
[2018-12-14] MEDS ORDERED: ROCURONIUM BROMIDE 10 MG/ML 10 ML VIAL IV ONE (10:04)
[2018-12-14] MEDS ORDERED: HYDROmorphone (PF) 1 MG/ML ONE (10:04)
[2018-12-14] MEDS ORDERED: GLYCOPYRROLATE 0.2 MG/ML 2 ML VIAL ONE (10:04)
[2018-12-14] MEDS ORDERED: fentaNYL (PF) 50 MCG/ML 2 ML AMP ONE (10:04)
[2018-12-14] MEDS ORDERED: SUCCINYLCHOLINE CHLORIDE 100 MG/5 ML SYR IV ONE (10:04)
[2018-12-14] MEDS ORDERED: LIDOCAINE 1% INJ 10MG/ML (20 ML MDV) ONE (10:04)
[2018-12-14] MEDS ORDERED: PROPOFOL 10 MG/ML 20 ML VIAL IV ONE (10:04)
[2018-12-14] MEDS ORDERED: LACTATED RINGERS 1,000 ML IV ONE (10:58)
[2018-12-14] MEDS ORDERED: HYDROcodone/APAP 5-325MG 1 EACH TAB PO PRN (11:05)
[2018-12-14] MEDS ORDERED: NALOXONE 0.4 MG/ML 1 ML VIAL IV PRN (11:05)
--- NOTE | 2018-12-14 11:07 | P.OP ---
Date of Procedure: 12/14/18 Procedure(s) Performed: PREOPERATIVE DIAGNOSIS: Chronic cholecystitis POSTOPERATIVE DIAGNOSIS: Same PROCEDURE: Laparoscopic cholecystectomy SURGEON: Antwan EBL: Minimal see anesthesia record ANESTHESIA: Gen. COMPLICATIONS: None OPERATIVE PROCEDURE: The patient was brought and placed on the operating room table in the supine position. The patient was placed under general anesthesia at that time. The abdomen was prepped and draped in the usual sterile fashion. A small vertical infraumbilical incision was made. The fascia was grasped with the Koby forceps. The fascia was retracted anteriorly. The Veress needle was advanced into the peritoneal cavity. The saline drop test was normal. Insufflation took place up to 15 mmHg. A 5 mm optical trocar was advanced and the peritoneal cavity. 2 additional 5 mm trochars were placed in the right upper quadrant under direct visualization. A 12 mm trocar was advanced into the epigastric incision site. The gallbladder was retracted superiorly and laterally. The peritoneum overlying the infundibulum was bluntly dissected. The patient's cystic duct was visualized. The junction between the cystic duct common and hepatic duct was identified. The cystic duct was then divided after placement of 3 12 mm clips on the patient's side and one on the specimen side. The cystic artery was identified and clipped as well. A small vessel was seen along the gallbladder fossa and clipped as well. The gallbladder was then removed from the liver bed using electrocautery. The gallbladder was then removed from the epigastric trocar site with an Endo Catch bag. The gallbladder fossa was irrigated with saline. There was no evidence of any bleeding or biliary drainage seen. The fascia at the 12 millimeter site was closed using a Enmanuel-Giovanna 0 Vicryl stitch. The trochars were then removed. The skin at all 4 sites was closed using a 4-0 Monocryl stitch. Skin glue was utilized on the incision sites. At the end of this procedure the sponge and needle counts were correct. DISPOSITION: Stable to the recovery room
[2018-12-14 11:21] VITALS: TEMP 97.6
[2018-12-14 12:39] VITALS: RESP 16
[2018-12-14 13:25] VITALS: BP 146/76; PULSE 54
== END 2018-12-14 14:04 | disposition home or self-care (01) ==
LOC: OR 08:36
PROVIDERS: ATTEND Surgery
DX: K80.10 Calculus of gallbladder with chronic cholecystitis without obstruction (principal); I10 Essential (primary) hypertension; E03.9 Hypothyroidism, unspecified; E78.5 Hyperlipidemia, unspecified; I73.00 Raynaud's syndrome without gangrene; M19.90 Unspecified osteoarthritis, unspecified site; M41.9 Scoliosis, unspecified; G47.30 Sleep apnea, unspecified; Z90.710 Acquired absence of both cervix and uterus; Z87.891 Personal history of nicotine dependence; Z79.890 Hormone replacement therapy; Z79.899 Other long term (current) drug therapy; Z79.1 Long term (current) use of non-steroidal anti-inflammatories (NSAID); Z88.1 Allergy status to other antibiotic agents; Z88.5 Allergy status to narcotic agent; Z91.09 Other allergy status, other than to drugs and biological substances; Z80.3 Family history of malignant neoplasm of breast; Z83.3 Family history of diabetes mellitus; Z82.49 Family history of ischemic heart disease and other diseases of the circulatory system
CPT/HCPCS: 47562; 88304; J2250; J1644; J1100; J2710; J2405; J2001; J3010; J1885; J1170; J0330; J2704

== ENCOUNTER → 2019-01-02 | Outpatient (CLI) | payer MEDICARE ==
--- NOTE | 2019-01-02 12:17 | XR ---
EXAMINATION TYPE: XR ankle complete RT DATE OF EXAM: 01/02/2019 CLINICAL HISTORY: Right ankle pain and swelling with no known injury. TECHNIQUE: Frontal, lateral and oblique images of the right ankle are obtained. COMPARISON: None. FINDINGS: There is no acute fracture/dislocation evident in the right ankle. The ankle mortise appe ars within normal limits. Very small plantar heel spur is noted. The overlying soft tissue appears u nremarkable. IMPRESSION: There is no acute fracture or dislocation in the right ankle.
== END | disposition home or self-care (01) ==
LOC: RADXRMAIN 11:15
PROVIDERS: ATTEND Internal Medicine Geriatric Medicine
DX: M25.571 Pain in right ankle and joints of right foot (principal)

== ENCOUNTER → 2019-03-26 | Outpatient (CLI) | payer MEDICARE ==
--- NOTE | 2019-03-28 10:52 | MM ---
Reason for exam: screening (asymptomatic). Last mammogram was performed 1 year and 2 months ago. History: Patient is postmenopausal. Family history of breast cancer in sister at age 69 and breast cancer in mother at age 85. Physical Findings: A clinical breast exam by your physician is recommended on an annual basis and results should be correlated with mammographic findings. MG 3D Screening Mammo W/Cad Bilateral CC and MLO view(s) were taken. Prior study comparison: January 30, 2018, bilateral MG 3d screening mammo w/cad. December 21, 2016, bilateral MG 3d screening mammo w/cad. The breast tissue is extremely dense which could obscure a lesion on mammography. No significant changes when compared with prior studies. ASSESSMENT: Benign, BI-RAD 2 RECOMMENDATION: Routine screening mammogram of both breasts in 1 year.
== END | disposition home or self-care (01) ==
LOC: RADMAMWWP 13:13
PROVIDERS: ATTEND Internal Medicine Geriatric Medicine
DX: Z12.31 Encounter for screening mammogram for malignant neoplasm of breast (principal)
CPT/HCPCS: 77063; 77067

== ENCOUNTER → 2020-08-03 | Outpatient (CLI) | payer MEDICARE ==
--- NOTE | 2020-08-03 19:26 | BD ---
EXAMINATION TYPE: Axial Bone Density DATE OF EXAM: 08/03/2020 COMPARISON: 01/25/2017 CLINICAL HISTORY: Postmenopausal screening Height: 60 IN Weight: 167 LBS RISK FACTORS HISTORY OF: Family History of Osteoporosis: YES MOTHER Active: YES Postmenopausal woman: PARTIAL HYST AGE 48 Take estrogen and/or progesterone medications: NOT NOW How lon YEARS Lost more than 2 inches in height since high school: YES 3" MEDICATIONS: Thyroid Medications: YES Which medication: Levothyroxine How Lon+ YEARS Osteoporosis Medications: NOT NOW Which medication: Fosamax How Lon YEARS Additional Medications: VIT D, BLOOD PRESSURE MEDS, EXAM MEASUREMENTS: Bone mineral densitometry was performed using the [employer] System. Bone mineral density as measured about the Lumbar spine is: ----- L1-L4(G/cm2): 1.141 T Score Values are as follows: ----- L2: -0.9 ----- L3: 0.0 ----- L4: -0.1 ----- L1-L4: -0.3 Bone mineral density has: Increased 0.8% since study of: 01/25/2017 Bone mineral density about the R hip (g/cm2): 0.760 Bone mineral density about the L hip (g/cm2): 0.841 T Score values are as follows: -----R Neck: -2.0 -----L Neck: -1.4 -----R Total: -1.3 -----L Total: -0.6 Bone mineral density has: Increased 2.3% since study of: 01/25/2017 IMPRESSION: Osteopenia (T Score between -2.5 and -1). There is slightly increased risk of fracture and the patient may be considered for treatment. Re-Screen 2-5 years. NOTE: T-SCORE=SD OF THE YOUNG ADULT MEAN.
--- NOTE | 2020-08-04 14:59 | MM ---
Reason for exam: screening (asymptomatic). Last mammogram was performed 1 year and 4 months ago. History: Patient is postmenopausal. Family history of breast cancer in sister at age 69 and breast cancer in mother at age 85. Took hormonal contraceptives for 20 years. Physical Findings: A clinical breast exam by your physician is recommended on an annual basis and results should be correlated with mammographic findings. MG 3D Screening Mammo W/Cad Bilateral CC and MLO view(s) were taken. Prior study comparison: March 26, 2019, bilateral MG 3d screening mammo w/cad. January 30, 2018, bilateral MG 3d screening mammo w/cad. The breast tissue is extremely dense which could obscure a lesion on mammography. No significant changes when compared with prior studies. ASSESSMENT: Benign, BI-RAD 2 RECOMMENDATION: Routine screening mammogram of both breasts in 1 year.
== END ==
LOC: RADMAMWWP 13:51
PROVIDERS: ATTEND Internal Medicine Geriatric Medicine
DX: Z12.31 Encounter for screening mammogram for malignant neoplasm of breast (principal); M85.89 Other specified disorders of bone density and structure, multiple sites; Z78.0 Asymptomatic menopausal state; Z80.3 Family history of malignant neoplasm of breast
CPT/HCPCS: 77063; 77067; 77080

== ENCOUNTER → 2020-10-08 | Outpatient (CLI) | payer MEDICARE ==
--- NOTE | 2020-10-08 19:55 | CONS ---
CONSULTATION DATE OF SERVICE: 10/08/2020 This 69-year-old lady has been evaluated in Sleep Center for obstructive sleep apnea- hypopnea syndrome. HISTORY OF PRESENT ILLNESS/SLEEP-WAKE EVALUATION: The patient has a history of obstructive sleep apnea for many years. The machine which she is using now is more than 10 years old. Her sleep schedule is from midnight until 8 a.m. Sometimes she has problems with falling asleep, although no TV in bedroom. She wakes up from sleep 3 times adjusting her head gear for the mask; she does not feel comfortable with this. She has one episode of nocturia at night. No history of hypnagogic hallucinations, sleep paralysis or cataplexy. In the morning the patient may have episodes of sleepiness. [place] Sleepiness Scale is 8. She takes one nap around 1 to 3 p.m. Sometimes she has problems with concentration and irritability. PAST MEDICAL HISTORY: Positive for hypertension, anxiety, hypothyroidism. PAST SURGICAL HISTORY: Partial hysterectomy, surgery for carpal tunnel syndrome on the right side, cholecystectomy, surgery for nasal septum deviation. MEDICATIONS: 1. Levothyroxine 25 mcg once a day. 2. Hydrochlorothiazide 12.5 mg once a day. 3. Losartan 50 mg once a day. 4. Flexeril 10 mg once a day. 5. Xanax 0.25 mg twice a day on p.r.n. basis. 6. Probiotic. 7. Vitamins. 8. Calcium supplement. REVIEW OF SYSTEMS: No fevers. No double vision. No recent chest pain. No shortness of breath. No abdominal pain. No bleeding episodes. No blood in the urine. No seizure episodes. Awakenings from sleep while using her CPAP equipment. PHYSICAL EXAMINATION: GENERAL: A pleasant lady without distress. VITAL SIGNS: BP 143/81, HR 75, RR 12, height 5 feet 1 inch. Weight 160.8, BMI 30.2. Temperature 97.2, oxygen saturation at room air 98%. HEENT: PERRLA, EOMI. Evaluation of oropharynx showed tongue protrudes midline. Extremely low position of soft palate. Mallampati IV. NECK: Supple. No JVD. Thyroid is not palpable. Neck is 14 inches in circumference. LUNGS: Clear to percussion and to auscultation. Good air exchange. No wheezing or rhonchi. HEART: S1, S2 regular. No murmurs, gallops or rubs. ABDOMEN: Soft and nontender. Bowel sounds are present. No organomegaly appreciated. EXTREMITIES: No clubbing or cyanosis. SHOWROOM SALES CONSULTANT: Awake, alert, and oriented X3. Cranial nerves 2 to 7 intact. There is no fasciculation or atrophy. noted. No focal deficits observed. IMPRESSION: 1. Obstructive sleep apnea-hypopnea syndrome for many years. Patient continues to use her CPAP equipment during the night but wakes up from sleep. The CPAP is more than 10 years old. 2. Mild obesity; body mass index 30.2. 3. Patient feels uncomfortable with her mask, changing positions of her headgear at night several times. 4. Hypothyroidism. 5. Hypertension. 6. Anxiety. 7. Status post partial hysterectomy. 8. Status post cholecystectomy. 9. Status post surgical treatment of carpal tunnel syndrome on the right side. 10.Status post surgery for nasal septum deviation. PLAN: 1. We will repeat CPAP titration to evaluate effective CPAP pressure at the present time, to check mask fitting and to find for the patient a more comfortable mask. 2. Patient will get a new CPAP unit after titration. 3. Sleep hygiene with regular time in bed for 7-1/2 to 8 hours. 4. Watching and losing weight. 5. No driving if feeling any sleepiness. Thank you very much for referring this patient for consultation. Sincerely, Arthur Barragan MD, PhD, FAASM Diplomat of [employer] [employer] Director Public of [facility] [place] MMODL / XAVIERN: [id number] /
== END ==
LOC: SLEEP 15:57
PROVIDERS: ATTEND Internal Medicine
DX: G47.33 Obstructive sleep apnea (adult) (pediatric) (principal); E66.9 Obesity, unspecified; E03.9 Hypothyroidism, unspecified; Z68.30 Body mass index [BMI] 30.0-30.9, adult; I10 Essential (primary) hypertension; F41.9 Anxiety disorder, unspecified; Z90.711 Acquired absence of uterus with remaining cervical stump; Z90.49 Acquired absence of other specified parts of digestive tract; Z98.890 Other specified postprocedural states; Z79.899 Other long term (current) drug therapy; Z87.891 Personal history of nicotine dependence
CPT/HCPCS: 99211

== ENCOUNTER → 2021-04-22 | Outpatient (CLI) | payer MEDICARE ==
--- NOTE | 2021-04-23 08:28 | SFUN ---
SLEEP CENTER FOLLOW UP NOTE DATE OF SERVICE: 04/16/2021 70-year-old lady has been followed in Sleep Center for treatment of obstructive sleep apnea-hypopnea syndrome. The patient has history of obstructive sleep apnea-hypopnea syndrome for many years. Recently she has had problems with her CPAP equipment. We did CPAP titration and get for patient new CPAP equipment. Today is her first visit after she started to use new CPAP unit. She likes her machine and she is using it every night. No snoring with the machine. She prefers to use a Flores FX nasal pillow mask instead of mask which she had. I checked her CPAP unit. Range of the pressure 5-8, usage 100% of nights, 20 nights out of 30 nights more than 4 hours. Leak is only 5 L/minute. Apnea-hypopnea index only 0.4 absolutely perfect. MEDICATIONS: Levothyroxine 25 mcg once a day, hydrochlorothiazide 12.5 mg once a day, losartan 50 mg once a day, Flexeril 10 mg once a day, Xanax 0.25 mg twice a day if necessary, vitamins, calcium, probiotic supplements. PHYSICAL EXAMINATION: GENERAL: Patient in no distress. BP 191/90, HR 74, RR 15, weight 160, temp 98.2, oxygen saturation at room air 97%. OROPHARYNX: Extremely low position of soft palate, Mallampati 4. NECK: Supple, no JVD. Thyroid is not palpable. LUNGS: Clear to percussion and to auscultation. Good air exchange. No wheezing or rhonchi. HEART: S1, S2 regular. No murmurs, gallops, or rubs. ABDOMEN: Slightly obese. Soft and nontender. Bowel sounds are present. No organomegaly appreciated. EXTREMITIES: No clubbing or cyanosis. SUPERVISOR GROWER: Awake, alert, and oriented X3. Cranial nerves 2 to 7 intact. There is no fasciculation or atrophy. noted. No focal deficits observed. IMPRESSION: 1. Obstructive sleep apnea-hypopnea syndrome. Patient demonstrated great compliance with treatment. Normal respiration on CPAP, benefitting from treatment. 2. Hypertension, blood pressure increased today in the office. No chest pain, shortness of breath, dizziness. 3. Mild obesity. 4. Hypothyroidism. 5. Anxiety. 6. Status post partial hysterectomy. 7. Status post cholecystectomy. 8. Status post surgical treatment of carpal tunnel syndrome on the right side. 9. Status post surgery for nasal septum deviation. PLAN: 1. Prescription for Flores FX nasal pillow mask, medium size with head gear for her. 2. Patient will continue to use PAP equipment every night for the whole night. 3. Sleep hygiene with regular time in bed for at least 7-1/2 to 8 hours. 4. Precautions related to driving. No driving if feeling sleepiness. 5. I will maintain all necessary prescription for PAP supplies including mask, tube, filters. 6. Watching weight. 7. Follow-up visit in 6 months or earlier if patient has any problems. Thank you very much for allowing me to participate in the management of your patient. Sincerely, Arthur Barragan MD, PhD, FAASM Diplomat of [employer] Sleep Medicine Board of [employer] Technical Illustrator of [facility] [place] MMMISSYL / XAVIERN: [id number] /
== END ==
LOC: SLEEP 11:23
PROVIDERS: ATTEND Internal Medicine
DX: G47.33 Obstructive sleep apnea (adult) (pediatric) (principal); I10 Essential (primary) hypertension; E66.9 Obesity, unspecified; E03.9 Hypothyroidism, unspecified; F41.9 Anxiety disorder, unspecified; Z90.710 Acquired absence of both cervix and uterus; Z90.49 Acquired absence of other specified parts of digestive tract; Z98.890 Other specified postprocedural states; Z87.39 Personal history of other diseases of the musculoskeletal system and connective tissue; Z79.890 Hormone replacement therapy; Z79.899 Other long term (current) drug therapy; Z88.1 Allergy status to other antibiotic agents; Z88.5 Allergy status to narcotic agent; Z87.891 Personal history of nicotine dependence

== ENCOUNTER → 2021-09-23 | Outpatient (CLI) | payer MEDICARE ==
--- NOTE | 2021-09-27 11:37 | MM ---
Reason for exam: screening (asymptomatic). Last mammogram was performed 1 year and 2 months ago. History: Patient is postmenopausal. Family history of breast cancer in sister at age 69 and breast cancer in mother at age 85. Took hormonal contraceptives for 20 years. Physical Findings: A clinical breast exam by your physician is recommended on an annual basis and results should be correlated with mammographic findings. MG 3D Screening Mammo W/Cad Bilateral CC and MLO view(s) were taken. Prior study comparison: August 03, 2020, bilateral MG 3d screening mammo w/cad. March 26, 2019, bilateral MG 3d screening mammo w/cad. The breast tissue is extremely dense which could obscure a lesion on mammography. No significant changes when compared with prior studies. ASSESSMENT: Benign, BI-RAD 2 RECOMMENDATION: Routine screening mammogram of both breasts in 1 year.
== END | disposition home or self-care (01) ==
LOC: RADMAMWWP 15:55
PROVIDERS: ATTEND Internal Medicine Geriatric Medicine
DX: Z12.31 Encounter for screening mammogram for malignant neoplasm of breast (principal); Z78.0 Asymptomatic menopausal state; Z80.3 Family history of malignant neoplasm of breast
CPT/HCPCS: 77063; 77067

== ENCOUNTER → 2021-12-02 | Outpatient (CLI) | payer MEDICARE ==
--- NOTE | 2021-12-02 15:13 | P.PN ---
Subjective DATE: 12/02/2021 FOLLOW UP VISIT. Patient with obstructive sleep apnea hypopnea syndrome return to sleep center for follow-up visit. Patient is using PAP equipment every night for the whole night, getting PAP supplies in time. The patient does not have significant problems with the mask, PAP unit and humidification. [place] sleepiness scale is 7. I checked PAP unit. PAP unit pressure 5-8, average 7.9 cm H2O. Usage is 100 % for more then 4 hours, average 8.1 hours per night. Leak is 4 l/m, which is in acceptable range. Apnea Hypopnea Index is 0.5, which is normal. MEDICATIONS:1. Levothyroxine 25 g once a day 2. Hydrochlorothiazide 12.5 mg once a day 3. Losartan 50 mg once a day 4. Flexeril 10 mg as needed 5. Crestor 10 mg once a day 6. Xanax 0.25 mg as needed 7. Vitamin D 5000 unit daily During physical exam: GENERAL: A pleasant patient without any distress. VITAL SIGNS: BP 148/80, HR 72, RR 12 , weight 162.4, temperature 97.5, height 5 foot 1/4 inches, body mass index 31.6, oxygen saturation at room air 98% . HEENT: PERRLA, EOMI.low position of soft palate, Mallapati for . NECK: Supple. No JVD. LUNGS: Clear to percussion and to auscultation. Good air exchange. No wheezing or rhonchi. HEART: S1, S2 regular. ABDOMEN: Soft and nontender.[] EXTREMITIES: No clubbing or cyanosis. GRAPHIC DESIGN ASSISTANT: Awake, alert, and oriented x3. No focal deficit. Impressions: 1. Obstructive sleep apnea-hypopnea syndrome. Patient demonstrated great compliance with treatment, benefiting from treatment. 2. Mild obesity. 3. Hypertension. 4. Hypothyroidism. 5. Anxiety. 6. Status post partial hysterectomy. 7. Status post cholecystectomy. 8. Status post surgical treatment of carpal tunnel syndrome on the right side. 9. Status post surgery for nasal septum deviation. 10 [] Plan: 1. Continue using PAP equipment every night for the whole night. 2. To change air filter at least 1-2 times per month. 3. PAP unit should stay lower then position of the head. 4. Advised patient to remove all remaining water from humidifier canister daily and make it dry after each usage. Refill canister with fresh distilled water before each usage. 5. Sleep hygiene with regular time in bed for at least 8 hours. 6. Precautions related to driving. No driving if feel any sleepiness. 7. I will maintain prescription for PAP supplies including mask, tube, filters. 8. Follow up visit in 6 months or earlier if patient has any problems. 9. Watching weight. Thank you very much for allowing me to participate in the management of your patient. Arthur Barragan MD, PhD, FAASM. Diplomat of [place] [employer], Sleep Medicine Board by [place] [employer] Solar Panel Technician of [facility] [place]
== END ==
LOC: SLEEP 14:37
PROVIDERS: ATTEND Internal Medicine
DX: G47.33 Obstructive sleep apnea (adult) (pediatric) (principal); E66.9 Obesity, unspecified; I10 Essential (primary) hypertension; E03.9 Hypothyroidism, unspecified; F41.9 Anxiety disorder, unspecified; Z90.710 Acquired absence of both cervix and uterus; Z90.49 Acquired absence of other specified parts of digestive tract; Z98.890 Other specified postprocedural states; Z87.09 Personal history of other diseases of the respiratory system; Z99.89 Dependence on other enabling machines and devices; Z79.890 Hormone replacement therapy; Z79.899 Other long term (current) drug therapy; Z68.31 Body mass index [BMI] 31.0-31.9, adult; Z88.5 Allergy status to narcotic agent; Z88.1 Allergy status to other antibiotic agents; Z87.891 Personal history of nicotine dependence

== ENCOUNTER → 2022-10-13 | Outpatient (CLI) | payer MEDICARE ==
--- NOTE | 2022-10-13 16:45 | P.PN ---
Subjective DATE: 10/13/2022 FOLLOW UP VISIT. Patient with obstructive sleep apnea hypopnea syndrome return to sleep center for follow-up visit. Information from previous visit have been reviewed. Patient is using PAP equipment every night for the whole night, getting PAP supplies in time. The patient does not have significant problems with the mask, PAP unit and humidification. [place] sleepiness scale is 8, which is normal. I checked information from PAP unit. PAP unit pressure 5-10 cm H2O. Usage is 100 % for more then 4 hours, average 8.6 hours per night. Leak is 4 l/m, which is in acceptable range. Apnea Hypopnea Index is 0.5, which is normal. MEDICATIONS:1. Levothyroxine 25 g once a day 2. Hydrochlorothiazide 12.5 mg once a day 3. Losartan 50 mg once a day 4. Crestor 10 mg once a day 5. Flexeril 10 mg as needed 6. Xanax 0.25 mg as needed During physical exam: GENERAL: A pleasant patient without any distress. VITAL SIGNS: BP 155/82, HR 79, RR 12 , weight 162, temperature 97.7, oxygen saturation at room air 97 % . HEENT: PERRLA, EOMI.low position of soft palate, Mallapati 4 . NECK: Supple. No JVD. LUNGS: Clear to percussion and to auscultation. Good air exchange. No wheezing or rhonchi. HEART: S1, S2 regular. ABDOMEN: Soft and nontender.[] EXTREMITIES: No clubbing or cyanosis. TRIPE SCRAPER: Awake, alert, and oriented x3. No focal deficit. Impressions: 1. Obstructive sleep apnea-hypopnea syndrome. Patient demonstrated great compliance with treatment, benefiting from treatment. 2. Hypertension. 3. Mild obesity. 4. Hypothyroidism. 5. Anxiety. 6. Status post partial hysterectomy. 7. Status post surgery for nasal septum deviation. Plan: 1. Continue using PAP equipment every night for the whole night. 2. To change air filter at least 1-2 times per month. 3. PAP unit should stay lower then position of the head. 4. Advised patient to remove all remaining water from humidifier canister daily and make it dry after each usage. Refill canister with fresh distilled water before each usage. 5. Sleep hygiene with regular time in bed for at least 8 hours. 6. Precautions related to driving. No driving if feel any sleepiness. 7. I will maintain prescription for PAP supplies including mask, tube, filters. 8. Watching weight. 9. Follow up visit in 6 months or earlier if patient has any problems. Thank you very much for allowing me to participate in the management of your patient. Arthur Barragan MD, PhD, FAASM. Diplomat of [place] [employer], Sleep Medicine Board by [place] [employer] Radio Communication Coordinator of [facility] [place]
== END ==
LOC: SLEEP 15:26
PROVIDERS: ATTEND Internal Medicine
DX: G47.33 Obstructive sleep apnea (adult) (pediatric) (principal); I10 Essential (primary) hypertension; E66.9 Obesity, unspecified; E03.9 Hypothyroidism, unspecified; F41.9 Anxiety disorder, unspecified; Z90.711 Acquired absence of uterus with remaining cervical stump; Z98.890 Other specified postprocedural states; Z99.89 Dependence on other enabling machines and devices; Z88.1 Allergy status to other antibiotic agents; Z88.5 Allergy status to narcotic agent; Z87.891 Personal history of nicotine dependence
CPT/HCPCS: 99212

== ENCOUNTER → 2023-04-19 | Outpatient (CLI) | payer MEDICARE ==
--- NOTE | 2023-04-19 13:29 | P.PN ---
Subjective DATE: 04/19/2023 FOLLOW UP VISIT. Patient with obstructive sleep apnea hypopnea syndrome return to sleep center for follow-up visit. Information from previous visit have been reviewed. Patient is using PAP equipment every night for the whole night, getting PAP supplies in time. The patient does not have significant problems with the mask, PAP unit and humidification. [place] sleepiness scale is 4. I checked information from PAP unit. PAP unit pressure 5-10, average 9.9 cm H2O. Usage is 95 % for more then 4 hours, average 7.7 hours per night. Leak is 6 l/m, which is in acceptable range. Apnea Hypopnea Index is 0.4, which is normal. MEDICATIONS:1. Synthroid 25 g once a day 2. Losartan 50 mg once a day 3. Hydrochlorothiazide 12.5 mg once a day During physical exam: GENERAL: A pleasant patient without any distress. VITAL SIGNS: BP 147/81, HR 89, RR 15 , weight 165.8, temperature 98.2, oxygen saturation at room air 97 % . HEENT: PERRLA, EOMI.low position of soft palate, Mallapati 4 . NECK: Supple. No JVD. LUNGS: Clear to percussion and to auscultation. Good air exchange. No wheezing or rhonchi. HEART: S1, S2 regular. ABDOMEN: Soft and nontender. Slightly obese. EXTREMITIES: No clubbing or cyanosis. GENERAL OFFICE DISPATCHER: Awake, alert, and oriented x3. No focal deficit. Impressions: 1. Obstructive sleep apnea-hypopnea syndrome. Patient demonstrated great compliance with treatment, benefiting from treatment. 2. Hypertension. 3. Hypothyroidism. 4. History of anxiety. 5. Mild obesity. 6. Status post surgery for nasal septum deviation. 7. Status post partial hysterectomy. Plan: 1. Continue using PAP equipment every night for the whole night. 2. To change air filter at least 1-2 times per month. 3. PAP unit should stay lower then position of the head. 4. Advised patient to remove all remaining water from humidifier canister daily and make it dry after each usage. Refill canister with fresh distilled water before each usage. 5. Sleep hygiene with regular time in bed for at least 8 hours. 6. Precautions related to driving. No driving if feel any sleepiness. 7. I will maintain prescription for PAP supplies including mask, tube, filters. 8. Follow up visit in 6 months or earlier if patient has any problems. 9. Watching and losing weight. Thank you very much for allowing me to participate in the management of your patient. Arthur Barragan MD, PhD, FAASM. Diplomat of [employer] [employer], Sleep Medicine Board by [employer] [employer] Staffing Assistant of [facility] [place]
== END ==
LOC: 3 N SLEEP 13:02
PROVIDERS: ATTEND Internal Medicine
DX: G47.33 Obstructive sleep apnea (adult) (pediatric) (principal); I10 Essential (primary) hypertension; E66.9 Obesity, unspecified; E03.9 Hypothyroidism, unspecified; F41.9 Anxiety disorder, unspecified; Z79.890 Hormone replacement therapy; Z79.899 Other long term (current) drug therapy; Z98.890 Other specified postprocedural states; Z99.89 Dependence on other enabling machines and devices; Z88.1 Allergy status to other antibiotic agents; Z88.8 Allergy status to other drugs, medicaments and biological substances; Z88.5 Allergy status to narcotic agent; Z88.6 Allergy status to analgesic agent; Z87.891 Personal history of nicotine dependence
CPT/HCPCS: 99212

== ENCOUNTER 2023-12-02 17:43 | Emergency (ER) | payer MEDICARE ==
[2023-12-02 18:03] VITALS: TEMP 99
--- NOTE | 2023-12-02 18:46 | ED ---
Abdominal Pain HPI - General Chief Complaint: Abdominal Pain Stated Complaint: abd pain, pancreatitis Time Seen by Provider: 12/02/23 17:59 Source: patient, RN notes reviewed Mode of arrival: ambulatory Limitations: no limitations - History of Present Illness Initial Comments: This is a 72-year-old female presents emergency department chief complaint of abdominal pain is worsened over the past day. Patient was evaluated at [facility] with similar complaints the middle of November. She states that she was found to have a lesion on her liver measuring a few chills in diameter and is scheduled to follow-up with a GI specialist on 12/10. Patient states that her pain has been eating better since her recent visit, however states that over the past day it has been worsening of the left upper abdomen. She denies nausea, vomiting, chills, fevers, hematochezia, dark or tarry stools. Previous abdominal surgical history of cholecystectomy with no complications. - Related Data Home Medications Medication Instructions Recorded Confirmed ALPRAZolam [Xanax] 0.25 mg PO BID PRN 09/11/18 12/14/18 Cholecalciferol [Vitamin D3] 5,000 unit PO DAILY 09/11/18 12/13/18 Cyclobenzaprine [Flexeril] 10 mg PO TID PRN 09/11/18 12/14/18 Levothyroxine Sodium [Synthroid] 25 mcg PO DAILY 09/11/18 12/13/18 Losartan Potassium 50 mg PO DAILY 09/11/18 12/13/18 hydroCHLOROthiazide [Hydrodiuril] 12.5 mg PO DAILY 09/11/18 12/14/18 Fish Oil/Dha/Epa [Fish Oil 1,200 1 each PO DAILY 12/13/18 12/13/18 mg Fish Oil] Previous Rx's Medication Instructions Recorded Hydrocodone/Acetaminophen [[place] 1 tab PO Q6HR PRN 3 Days #10 tab 12/14/18 5-325] Allergies Allergy/AdvReac Type Severity Reaction Status Date / Time cefpodoxime [From Vantin] Allergy Rash/Hives Verified 12/02/23 18:03 cefuroxime [From Ceftin] Allergy Unknown Verified 12/02/23 18:03 clarithromycin [From Biaxin] Allergy Rash/Hives Verified 12/02/23 18:03 doxycycline [From Vibra-Tabs] Allergy Rash/Hives Verified 12/02/23 18:03 morphine Allergy Rash/Hives Verified 12/02/23 18:03 nitrofurantoin Allergy Rash/Hives Verified 12/02/23 18:03 [From Macrodantin] Review of Systems ROS Statement: Those systems with pertinent positive or pertinent negative responses have been documented in the HPI. ROS Other: All systems not noted in ROS Statement are negative. Past Medical History Past Medical History: Hypertension, Thyroid Disorder Additional Past Medical History / Comment(s): hypothyroidism, scoliosis, kyphosis, raynauds, OA, SCOTTIE on CPAP. History of Any Multi-Drug Resistant Organisms: None Reported Past Surgical History: Hysterectomy Additional Past Surgical History / Comment(s): R carpal david, ganglion cyst removed on wrist. Past Anesthesia/Blood Transfusion Reactions: No Reported Reaction Past Psychological History: No Psychological Hx Reported, Anxiety Smoking Status: Never smoker Past Alcohol Use History: Occasional Past Drug Use History: None Reported - Past Family History Father Additional Family Medical History / Comment(s): Father at age 54 from a myocardial infarction. Mother Additional Family Medical History / Comment(s): Mother at age 90 from old age. She had history of hypertension and breast cancer. Brother(s) Additional Family Medical History / Comment(s): The patient has 2 brothers with coronary artery disease and one has suffered from a stroke. Sister(s) Additional Family Medical History / Comment(s): Patient has one sister with history of breast cancer and hypertension. Patient has 3 sons with no major medical problems. General Exam Limitations: no limitations General appearance: alert, in no apparent distress Head exam: Present: atraumatic, normocephalic, normal inspection Eye exam: Present: normal appearance, PERRL, EOMI. Absent: scleral icterus, conjunctival injection, periorbital swelling ENT exam: Present: normal exam, mucous membranes moist Neck exam: Present: normal inspection. Absent: tenderness, meningismus, lymphadenopathy Respiratory exam: Present: normal lung sounds bilaterally. Absent: respiratory distress, wheezes, rales, rhonchi, stridor Cardiovascular Exam: Present: regular rate, normal rhythm, normal heart sounds. Absent: systolic murmur, diastolic murmur, rubs, gallop, clicks GI/Abdominal exam: Present: soft, tenderness (LUQ, mild), normal bowel sounds. Absent: distended, guarding, rebound, rigid Extremities exam: Present: normal inspection, full ROM, normal capillary refill. Absent: tenderness, pedal edema, joint swelling, calf tenderness Back exam: Present: normal inspection Neurological exam: Present: alert, oriented X3, CN II-XII intact Course Vital Signs 12/02/23 12/02/23 18:00 21:26 Temperature 99.0 F Pulse Rate 86 89 Respiratory 17 18 Rate Blood Pressure 151/77 136/85 O2 Sat by Pulse 97 98 Oximetry Medical Decision Making - Medical Decision Making Was pt. sent in by a medical professional or institution (, PA, PRINCIPAL EMBEDDED SOFTWARE ENGINEER, urgent care, hospital, or prison...) When possible be specific @ -No Did you speak to anyone other than the patient for history (EMS, parent, family, police, friend...)? What history was obtained from this source @ -No Did you review nursing and triage notes (agree or disagree)? Why? @ -I reviewed and agree with nursing and triage notes Were old charts reviewed (outside hosp., previous admission, EMS record, old EKG, old radiological studies, urgent care reports/EKG's, prison records)? Report findings @ -The patient's CT that was completed at an outpatient facility and scanned into the chart. It is noted that patient has multiple liver lesions. Differential Diagnosis (chest pain, altered mental status, abdominal pain women, abdominal pain men, vaginal bleeding, weakness, fever, dyspnea, syncope, headache, dizziness, GI bleed, back pain, seizure, CVA, palpatations, mental health, musculoskeletal)? @ -Differential Abdominal Pain Women: Appendicitis, Cholecystitis, diverticulosis, ischemic bowel, pancreatitis, hepatitis, UTI, gastroenteritis, AAA, incarcerated hernia, bowel obstruction, constipation, inflammatory bowel, hepatitis, peptic ulcer disease, splenic infarction, perforated viscus, vulvitis, ovarian torsion, PID, kidney stone, placenta abruption, this is not meant to be an all-inclusive list EKG interpreted by me (3pts min.). @ -None X-rays interpreted by me (1pt min.). @ -None done CT interpreted by me (1pt min.). @ -None done U/S interpreted by me (1pt. min.). @ -None done What testing was considered but not performed or refused? (CT, X-rays, U/S, labs)? Why? @ -The abdomen and pelvis was considered but deferred at this time due to patient having a recent CT of the abdomen with his symptoms aligning to when she had her imaging done. What meds were considered but not given or refused? Why? @ -Was offered a 500 and milliliters fluid bolus due to findings of mild hyponatremia, patient has declined at this time. Did you discuss the management of the patient with other professionals (professionals i.e. , PA, PRINCIPAL EMBEDDED SOFTWARE ENGINEER, lab, RT, psych nurse, social services analyst, underground conduit installer, teacher, motorcycle police officer, correctional case manager)? Give summary @ -No Was smoking cessation discussed for >3mins.? @ -No Was critical care preformed (if so, how long)? @ -No Were there social determinants of health that impacted care today? How? (Homelessness, low income, unemployed, alcoholism, drug addiction, transportation, low edu. Level, literacy, decrease access to med. care, fdc, rehab)? @ -No Was there de-escalation of care discussed even if they declined (Discuss DNR or withdrawal of care, Hospice)? DNR status @ -No What co-morbidities impacted this encounter? (DM, HTN, Smoking, COPD, CAD, Cancer, CVA, ARF, Chemo, Hep., AIDS, mental health diagnosis, sleep apnea, morbid obesity)? @ -None Was patient admitted / discharged? Hospital course, mention meds given and route, prescriptions, significant lab abnormalities, going to OR and other pertinent info. @ -Charge. 72-year-old female with left upper quadrant abdominal pain. Patient's abdomen is soft with mild tenderness palpation of the left upper quadrant with no radiation. Patient's vitals are stable upon arrival. There are no red flag findings concerning for further imaging at this time patient will be evaluated via laboratory studies. She is provided with pain medication in the emergency department. evaluation patient states that pain has somewhat improved. Labs including CBC, CMP, coagulation profile, amylase and lipase are all within normal limits. Was offered 500 mL of IV fluids and she has declined at this time. Recommend that patient keeps her follow-up appointment scheduled with the GI specialist in December for further evaluation of liver lesions. Strict return parameters have been discussed with the patient and she has verbalized understanding. Case discussed with Dr. Bingham. Undiagnosed new problem with uncertain prognosis? @ -No Drug Therapy requiring intensive monitoring for toxicity (Heparin, Nitro, Insulin, Cardizem)? @ -No Were any procedures done? @ -No Diagnosis/symptom? @ -abdominal pain Acute, or Chronic, or Acute on Chronic? @ -Acute Uncomplicated (without systemic symptoms) or Complicated (systemic symptoms)? @ -uncomplicated Side effects of treatment? @ -No Exacerbation, Progression, or Severe Exacerbation? @ -No Poses a threat to life or bodily function? How? (Chest pain, [place], [place], pneumonia, PE, COPD, DKA, ARF, appy, cholecystitis, CVA, Diverticulitis, Homicidal, Suic idal, threat to staff... and all critical care pts) @ -No - Lab Data Result diagrams: 12/02/23 19:43 12/02/23 19:43 Lab Results 12/02/23 12/02/23 12/02/23 Range/Units 19:43 19:43 19:43 WBC 7.7 (3.8-10.6) k/uL RBC 4.37 (3.80-5.40) m/uL Hgb 13.5 (11.4-16.0) gm/dL Hct 40.9 (34.0-46.0) % MCV 93.6 (80.0-100.0) fL MCH 31.0 (25.0-35.0) pg MCHC 33.1 (31.0-37.0) g/dL RDW 11.7 (11.5-15.5) % Plt Count 286 (150-450) k/uL MPV 7.5 Neutrophils % 72 % Lymphocytes % 20 % Monocytes % 5 % Eosinophils % 1 % Basophils % 1 % Neutrophils # 5.6 (1.3-7.7) k/uL Lymphocytes # 1.5 (1.0-4.8) k/uL Monocytes # 0.4 (0-1.0) k/uL Eosinophils # 0.1 (0-0.7) k/uL Basophils # 0.1 (0-0.2) k/uL PT 10.1 (10.0-12.5) sec INR 0.9 (<1.2) APTT 26.4 (22.0-30.0) sec Sodium (137-145) mmol/L Potassium (3.5-5.1) mmol/L Chloride (98-107) mmol/L Carbon Dioxide (22-30) mmol/L Anion Gap mmol/L BUN (7-17) mg/dL Creatinine (0.52-1.04) mg/dL Est GFR (CKD-EPI)AfAm (>60 ml/min/1.73 sqM) Est GFR (CKD-EPI)NonAf (>60 ml/min/1.73 sqM) Glucose (74-99) mg/dL Plasma Lactic Acid Diony (0.7-2.0) mmol/L Calcium (8.4-10.2) mg/dL Total Bilirubin (0.2-1.3) mg/dL AST (14-36) U/L ALT (4-34) U/L Alkaline Phosphatase (38-126) U/L Total Protein (6.3-8.2) g/dL Albumin (3.5-5.0) g/dL Amylase (30-110) U/L Lipase (23-300) U/L Urine Color Colorless Urine Appearance Clear (Clear) Urine pH 7.0 (5.0-8.0) Ur Specific Grady 1.008 (1.001-1.035) Urine Protein Negative (Negative) Urine Glucose (UA) Negative (Negative) Urine Ketones 1+ H (Negative) Urine Blood Negative (Negative) Urine Nitrite Negative (Negative) Urine Bilirubin Negative (Negative) Urine Urobilinogen <2.0 (<2.0) mg/dL Ur Leukocyte Esterase Negative (Negative) 12/02/23 12/02/23 Range/Units 19:43 19:43 WBC (3.8-10.6) k/uL RBC (3.80-5.40) m/uL Hgb (11.4-16.0) gm/dL Hct (34.0-46.0) % MCV (80.0-100.0) fL MCH (25.0-35.0) pg MCHC (31.0-37.0) g/dL RDW (11.5-15.5) % Plt Count (150-450) k/uL MPV Neutrophils % % Lymphocytes % % Monocytes % % Eosinophils % % Basophils % % Neutrophils # (1.3-7.7) k/uL Lymphocytes # (1.0-4.8) k/uL Monocytes # (0-1.0) k/uL Eosinophils # (0-0.7) k/uL Basophils # (0-0.2) k/uL PT (10.0-12.5) sec INR (<1.2) APTT (22.0-30.0) sec Sodium 132 L (137-145) mmol/L Potassium 4.1 (3.5-5.1) mmol/L Chloride 95 L (98-107) mmol/L Carbon Dioxide 28 (22-30) mmol/L Anion Gap 9 mmol/L BUN 10 (7-17) mg/dL Creatinine 0.62 (0.52-1.04) mg/dL Est GFR (CKD-EPI)AfAm >90 (>60 ml/min/1.73 sqM) Est GFR (CKD-EPI)NonAf >90 (>60 ml/min/1.73 sqM) Glucose 99 (74-99) mg/dL Plasma Lactic Acid Diony 1.2 (0.7-2.0) mmol/L Calcium 10.1 (8.4-10.2) mg/dL Total Bilirubin 0.9 (0.2-1.3) mg/dL AST 45 H (14-36) U/L ALT 72 H (4-34) U/L Alkaline Phosphatase 102 (38-126) U/L Total Protein 7.6 (6.3-8.2) g/dL Albumin 4.7 (3.5-5.0) g/dL Amylase 60 (30-110) U/L Lipase 293 (23-300) U/L Urine Color Urine Appearance (Clear) Urine pH (5.0-8.0) Ur Specific Grady (1.001-1.035) Urine Protein (Negative) Urine Glucose (UA) (Negative) Urine Ketones (Negative) Urine Blood (Negative) Urine Nitrite (Negative) Urine Bilirubin (Negative) Urine Urobilinogen (<2.0) mg/dL Ur Leukocyte Esterase (Negative) Disposition Clinical Impression: Abdominal pain Disposition: HOME SELF-CARE Condition: Good Instructions (If sedation given, give patient instructions): Abdominal Pain (ED) Additional Instructions: Return to the emergency department if symptoms worsen not improved. Recommend that you keep your appointment with GI specialist for further evaluation. Is patient prescribed a controlled substance at d/c from ED?: No Referrals: Ray Pastor MD [Primary Care Provider] - 1-2 days Time of Disposition: 21:24
[2023-12-02 20:37] LABS: Basophils # (A) 0.1 k/uL (0-0.2); Basophils % (A) 1 %; Eosinophils # (A) 0.1 k/uL (0-0.7); Eosinophils % (A) 1 %; HCT 40.9 % (34.0-46.0); HGB 13.5 gm/dL (11.4-16.0); Lymphocytes # (A) 1.5 k/uL (1.0-4.8); Lymphocytes % (A) 20 %; MCHC 33.1 g/dL (31.0-37.0); MCV 93.6 fL (80.0-100.0); Mean Platelet Volume 7.5; Monocytes # (A) 0.4 k/uL (0-1.0); Monocytes % (A) 5 %; Neutrophils # (A) 5.6 k/uL (1.3-7.7); Neutrophils % (A) 72 %; Platelet Count 286 k/uL (150-450); RBC 4.37 m/uL (3.80-5.40); RDW 11.7 % (11.5-15.5); WBC 7.7 k/uL (3.8-10.6)
[2023-12-02] MEDS: KETOROLAC 15 MG/ML 1 ML VIAL IVP STA (20:41)
[2023-12-02 20:51] LABS: Appearance,Urine Clear (Clear); Bilirubin,Urine Negative (Negative); Blood,Urine Negative (Negative); Color,Urine Colorless; Glucose,Urine (UA) Negative (Negative); Ketones,Urine 1+ (Negative); Leukocyte Esterase,Urine Negative (Negative); Nitrite,Urine Negative (Negative); Protein,Urine Negative (Negative); Specific Gravity,Urine 1.008 (1.001-1.035); Urobilinogen,Urine <2.0 mg/dL (<2.0)
[2023-12-02 20:53] LABS: INR 0.9 (<1.2); Partial Thromboplastin Time 26.4 sec (22.0-30.0); Prothrombin Time 10.1 sec (10.0-12.5)
[2023-12-02 21:01] LABS: ALT 72 U/L (4-34); AST 45 U/L (14-36); African American GFR (CKD) >90 (>60 ml/min/1.73 sqM); Albumin 4.7 g/dL (3.5-5.0); Alkaline Phosphatase 102 U/L (38-126); Amylase 60 U/L (30-110); Anion Gap 9 mmol/L; Blood Urea Nitrogen 10 mg/dL (7-17); Calcium 10.1 mg/dL (8.4-10.2); Carbon Dioxide 28 mmol/L (22-30); Chloride 95 mmol/L (98-107); Glucose 99 mg/dL (74-99); Lipase 293 U/L (23-300); Non-African American GFR(CKD) >90 (>60 ml/min/1.73 sqM); Potassium 4.1 mmol/L (3.5-5.1); Sodium 132 mmol/L (137-145); Total Bilirubin 0.9 mg/dL (0.2-1.3); Total Protein 7.6 g/dL (6.3-8.2)
[2023-12-02 21:36] VITALS: BP 136/85; PULSE 89; RESP 18
== END 2023-12-02 21:26 | disposition home or self-care (01) ==
LOC: EC 17:43
DX: R10.12 Left upper quadrant pain (principal); Z88.1 Allergy status to other antibiotic agents; Z88.5 Allergy status to narcotic agent
CPT/HCPCS: 36415; 80053; 82150; 83605; 83690; 85025; 85610; 85730; 81003; 99284; 96374; J1885

== ENCOUNTER 2023-12-04 14:57 | Inpatient (IN) | payer MEDICARE ==
--- NOTE | 2023-12-04 15:40 | ED ---
General Adult HPI - General Chief complaint: Abdominal Pain Stated complaint: Abd Pain Time Seen by Provider: 12/04/23 15:14 Source: patient, RN notes reviewed Mode of arrival: ambulatory Limitations: no limitations - History of Present Illness Initial comments: 72-year-old female presents to the emergency department for evaluation of left upper abdominal discomfort. Patient states that this started around 3 weeks ago. She was seen at [facility] at that time and was told that she had a cyst on her liver along with mild pancreatitis. She was discharged at that time but continued to have pain. She was evaluated here 3 days ago. Repeat labs were obtained at that time. Patient was treated and discharged home. She states that today she discussed with more severe pain in her left upper abdomen with associated vomiting and diarrhea. Denies fever, chills. Patient reports a prior cholecystectomy. - Related Data Home Medications Medication Instructions Recorded Confirmed Levothyroxine Sodium [Synthroid] 25 mcg PO DAILY 09/11/18 12/04/23 Losartan Potassium 50 mg PO BID 09/11/18 12/04/23 hydroCHLOROthiazide [Hydrodiuril] 12.5 mg PO DAILY 09/11/18 12/04/23 Allergies Allergy/AdvReac Type Severity Reaction Status Date / Time cefpodoxime [From Vantin] Allergy Rash/Hives Verified 12/04/23 17:38 cefuroxime [From Ceftin] Allergy Unknown Verified 12/04/23 17:38 clarithromycin [From Biaxin] Allergy Rash/Hives Verified 12/04/23 17:38 doxycycline [From Vibra-Tabs] Allergy Rash/Hives Verified 12/04/23 17:38 morphine Allergy Rash/Hives Verified 12/04/23 17:38 nitrofurantoin Allergy Rash/Hives Verified 12/04/23 17:38 [From Macrodantin] Review of Systems ROS Statement: Those systems with pertinent positive or pertinent negative responses have been documented in the HPI. ROS Other: All systems not noted in ROS Statement are negative. Past Medical History Past Medical History: Hypertension, Thyroid Disorder Additional Past Medical History / Comment(s): hypothyroidism, scoliosis, kyphosis, raynauds, OA, SCOTTIE on CPAP. History of Any Multi-Drug Resistant Organisms: None Reported Past Surgical History: Hysterectomy Additional Past Surgical History / Comment(s): R carpal david, ganglion cyst removed on wrist. Past Anesthesia/Blood Transfusion Reactions: No Reported Reaction Past Psychological History: No Psychological Hx Reported, Anxiety Smoking Status: Never smoker Past Alcohol Use History: Occasional Past Drug Use History: None Reported - Past Family History Father Additional Family Medical History / Comment(s): Father at age 54 from a myocardial infarction. Mother Additional Family Medical History / Comment(s): Mother at age 90 from old age. She had history of hypertension and breast cancer. Brother(s) Additional Family Medical History / Comment(s): The patient has 2 brothers with coronary artery disease and one has suffered from a stroke. Sister(s) Additional Family Medical History / Comment(s): Patient has one sister with hi story of breast cancer and hypertension. Patient has 3 sons with no major medical problems. General Exam Limitations: no limitations General appearance: alert, in no apparent distress Head exam: Present: atraumatic, normocephalic, normal inspection Eye exam: Present: normal appearance, PERRL, EOMI. Absent: scleral icterus, conjunctival injection, periorbital swelling ENT exam: Present: normal exam, mucous membranes moist Neck exam: Present: normal inspection. Absent: tenderness, meningismus, lymphadenopathy Respiratory exam: Present: normal lung sounds bilaterally. Absent: respiratory distress, wheezes, rales, rhonchi, stridor Cardiovascular Exam: Present: regular rate, normal rhythm, normal heart sounds. Absent: systolic murmur, diastolic murmur, rubs, gallop, clicks GI/Abdominal exam: Present: soft, tenderness (LUQ TTP), normal bowel sounds. Absent: distended, guarding, rebound, rigid Extremities exam: Present: normal inspection, full ROM, normal capillary refill. Absent: tenderness, pedal edema, joint swelling, calf tenderness Back exam: Present: normal inspection Neurological exam: Present: alert, oriented X3 Psychiatric exam: Present: normal affect, normal mood Skin exam: Present: warm, dry, intact, normal color. Absent: rash Course Vital Signs 12/04/23 12/04/23 12/04/23 15:10 17:04 18:40 Temperature 97.5 F L 97.4 F L Pulse Rate 68 71 72 Respiratory 18 16 18 Rate Blood Pressure 119/79 129/59 158/84 O2 Sat by Pulse 98 99 98 Oximetry 12/04/23 20:00 Temperature Pulse Rate 70 Respiratory 16 Rate Blood Pressure 148/77 O2 Sat by Pulse 99 Oximetry Medical Decision Making - Medical Decision Making Was pt. sent in by a medical professional or institution (, PATRICIA, PHYSICAL EDUCATION SPECIALIST, urgent care, hospital, or fpc...) When possible be specific @ -No Did you speak to anyone other than the patient for history (EMS, parent, family, police, friend...)? What history was obtained from this source @ -No Did you review nursing and triage notes (agree or disagree)? Why? @ -I reviewed and agree with nursing and triage notes Were old charts reviewed (outside hosp., previous admission, EMS record, old EKG, old radiological studies, urgent care reports/EKG's, fpc records)? Report findings @ -No old charts were reviewed Differential Diagnosis (chest pain, altered mental status, abdominal pain women, abdominal pain men, vaginal bleeding, weakness, fever, dyspnea, syncope, headache, dizziness, GI bleed, back pain, seizure, CVA, palpatations, mental health, musculoskeletal)? @ -Differential Abdominal Pain Men: Appendicitis, cholecystitis, diverticulosis, ischemic bowel, pancreatitis, hepatitis, UTI, gastroenteritis, AAA, incarcerated hernia, bowel obstruction, constipation, inflammatory bowel, hepatitis, peptic ulcer disease, splenic infa rction, perforated viscus, testicular torsion, this is not meant to be an all- inclusive list EKG interpreted by me (3pts min.). @ -EKG at X-rays interpreted by me (1pt min.). @ -None done CT interpreted by me (1pt min.). @ -CT abdomen pelvis was obtained which showed a large hepatic cyst, distended bladder with possible mass U/S interpreted by me (1pt. min.). @ -None done What testing was considered but not performed or refused? (CT, X-rays, U/S, labs)? Why? @ -None What meds were considered but not given or refused? Why? @ -None Did you discuss the management of the patient with other professionals (professionals i.e. PATRICIA Grant, PHYSICAL EDUCATION SPECIALIST, lab, RT, psych nurse, social work case manager, facility service manager, teacher, chief procurement officer, assistant case manager)? Give summary @ -Management discussed with Esther Gerber with [facility] who is accepting of the admission. Was smoking cessation discussed for >3mins.? @ -No Was critical care preformed (if so, how long)? @ -No Were there social determinants of health that impacted care today? How? (Homelessness, low income, unemployed, alcoholism, drug addiction, transportation, low edu. Level, literacy, decrease access to med. care, detention, rehab)? @ -No Was there de-escalation of care discussed even if they declined (Discuss DNR or withdrawal of care, Hospice)? DNR status @ -No What co-morbidities impacted this encounter? (DM, HTN, Smoking, COPD, CAD, Cancer, CVA, ARF, Chemo, Hep., AIDS, mental health diagnosis, sleep apnea, morbid obesity)? @ -None Was patient admitted / discharged? Hospital course, mention meds given and route, prescriptions, significant lab abnormalities, going to OR and other pertinent info. @ -Admitted. Patient presented to the emergency department for left upper abdominal pain. Laboratory studies obtained significant for leukocytosis at 13.3. Mild transaminitis. Sodium 126. UA shows no evidence for infectious process. Patient was provided 1 L normal saline in the emergency department. She declined pain medication. CT abdomen pelvis was obtained which showed a large hepatic cyst, distended bladder with possible mass. Patient will be admitted for continued abdominal pain, hyponatremia. Case discussed with Esther Gerber with [facility] who is accepting of the admission. Patient stable at time of admission. Case discussed with Dr. Moreno Undiagnosed new problem with uncertain prognosis? @ -No Drug Therapy requiring intensive monitoring for toxicity (Heparin, Nitro, Insulin, Cardizem)? @ -No Were any procedures done? @ -No Diagnosis/symptom? @ -Abdominal pain, hepatic cyst, hyponatremia Acute, or Chronic, or Acute on Chronic? @ -Acute Uncomplicated (without systemic symptoms) or Complicated (systemic symptoms)? @ -Complicated Side effects of treatment? @ -No Exacerbation, Progression, or Severe Exacerbation? @ -No Poses a threat to life or bodily function? How? (Chest pain, USA, SD, pneumonia, PE, COPD, DKA, ARF, appy, cholecystitis, CVA, Diverticulitis, Homicidal, Suicidal, threat to staff... and all critical care pts) @ -No - Lab Data Result diagrams: 12/04/23 15:59 12/04/23 15:59 Lab Results 12/04/23 12/04/23 12/04/23 Range/Units 15:24 15:59 15:59 WBC 13.3 H (3.8-10.6) k/uL RBC 4.18 (3.80-5.40) m/uL Hgb 12.9 (11.4-16.0) gm/dL Hct 38.8 (34.0-46.0) % MCV 92.8 (80.0-100.0) fL MCH 31.0 (25.0-35.0) pg MCHC 33.3 (31.0-37.0) g/dL RDW 11.7 (11.5-15.5) % Plt Count 287 (150-450) k/uL MPV 8.0 Neutrophils % 88 % Lymphocytes % 7 % Monocytes % 3 % Eosinophils % 1 % Basophils % 0 % Neutrophils # 11.7 H (1.3-7.7) k/uL Lymphocytes # 1.0 (1.0-4.8) k/uL Monocytes # 0.4 (0-1.0) k/uL Eosinophils # 0.1 (0-0.7) k/uL Basophils # 0.0 (0-0.2) k/uL Sodium 126 L (137-145) mmol/L Potassium 4.1 (3.5-5.1) mmol/L Chloride 94 L (98-107) mmol/L Carbon Dioxide 23 (22-30) mmol/L Anion Gap 9 mmol/L BUN 9 (7-17) mg/dL Creatinine 0.52 (0.52-1.04) mg/dL Est GFR (CKD-EPI)AfAm >90 (>60 ml/min/1.73 sqM) Est GFR (CKD-EPI)NonAf >90 (>60 ml/min/1.73 sqM) Glucose 105 H (74-99) mg/dL Plasma Lactic Acid Diony (0.7-2.0) mmol/L Calcium 9.4 (8.4-10.2) mg/dL Total Bilirubin 0.9 (0.2-1.3) mg/dL AST 43 H (14-36) U/L ALT 57 H (4-34) U/L Alkaline Phosphatase 77 (38-126) U/L Total Protein 6.9 (6.3-8.2) g/dL Albumin 4.4 (3.5-5.0) g/dL Amylase 63 (30-110) U/L Lipase 246 (23-300) U/L Urine Color Light Yellow Urine Appearance Clear (Clear) Urine pH 7.0 (5.0-8.0) Ur Specific [place] 1.017 (1.001-1.035) Urine Protein Negative (Negative) Urine Glucose (UA) Negative (Negative) Urine Ketones 2+ H (Negative) Urine Blood Negative (Negative) Urine Nitrite Negative (Negative) Urine Bilirubin Negative (Negative) Urine Urobilinogen <2.0 (<2.0) mg/dL Ur Leukocyte Esterase Trace H (Negative) Urine RBC 1 (0-5) /hpf Urine WBC 1 (0-5) /hpf Urine Mucus Rare H (None) /hpf 12/04/23 Range/Units 15:59 WBC (3.8-10.6) k/uL RBC (3.80-5.40) m/uL Hgb (11.4-16.0) gm/dL Hct (34.0-46.0) % MCV (80.0-100.0) fL MCH (25.0-35.0) pg MCHC (31.0-37.0) g/dL RDW (11.5-15.5) % Plt Count (150-450) k/uL MPV Neutrophils % % Lymphocytes % % Monocytes % % Eosinophils % % Basophils % % Neutrophils # (1.3-7.7) k/uL Lymphocytes # (1.0-4.8) k/uL Monocytes # (0-1.0) k/uL Eosinophils # (0-0.7) k/uL Basophils # (0-0.2) k/uL Sodium (137-145) mmol/L Potassium (3.5-5.1) mmol/L Chloride (98-107) mmol/L Carbon Dioxide (22-30) mmol/L Anion Gap mmol/L BUN (7-17) mg/dL Creatinine (0.52-1.04) mg/dL Est GFR (CKD-EPI)AfAm (>60 ml/min/1.73 sqM) Est GFR (CKD-EPI)NonAf (>60 ml/min/1.73 sqM) Glucose (74-99) mg/dL Plasma Lactic Acid Diony 0.9 (0.7-2.0) mmol/L Calcium (8.4-10.2) mg/dL Total Bilirubin (0.2-1.3) mg/dL AST (14-36) U/L ALT (4-34) U/L Alkaline Phosphatase (38-126) U/L Total Protein (6.3-8.2) g/dL Albumin (3.5-5.0) g/dL Amylase (30-110) U/L Lipase (23-300) U/L Urine Color Urine Appearance (Clear) Urine pH (5.0-8.0) Ur Specific [place] (1.001-1.035) Urine Protein (Negative) Urine Glucose (UA) (Negative) Urine Ketones (Negative) Urine Blood (Negative) Urine Nitrite (Negative) Urine Bilirubin (Negative) Urine Urobilinogen (<2.0) mg/dL Ur Leukocyte Esterase (Negative) Urine RBC (0-5) /hpf Urine WBC (0-5) /hpf Urine Mucus (None) /hpf Disposition Clinical Impression: Abdominal pain, Hyponatremia Disposition: [facility] Condition: Stable Is patient prescribed a controlled substance at d/c from ED?: No Referrals: Ray Pastor MD [Primary Care Provider] - 1-2 days
[2023-12-04] MEDS: SODIUM CHLORIDE 0.9% 1,000 ML IV ONE (16:09)
[2023-12-04 16:48] LABS: African American GFR (CKD) >90 (>60 ml/min/1.73 sqM); Albumin 4.4 g/dL (3.5-5.0); Alkaline Phosphatase 77 U/L (38-126); Amylase 63 U/L (30-110); Anion Gap 9 mmol/L; Blood Urea Nitrogen 9 mg/dL (7-17); Calcium 9.4 mg/dL (8.4-10.2); Carbon Dioxide 23 mmol/L (22-30); Chloride 94 mmol/L (98-107); Glucose 105 mg/dL (74-99); Lipase 246 U/L (23-300); Non-African American GFR(CKD) >90 (>60 ml/min/1.73 sqM); Sodium 126 mmol/L (137-145); Total Bilirubin 0.9 mg/dL (0.2-1.3); Total Protein 6.9 g/dL (6.3-8.2)
[2023-12-04 17:00] LABS: Basophils % (A) 0 %; Eosinophils # (A) 0.1 k/uL (0-0.7); Eosinophils % (A) 1 %; HCT 38.8 % (34.0-46.0); HGB 12.9 gm/dL (11.4-16.0); Lymphocytes % (A) 7 %; MCHC 33.3 g/dL (31.0-37.0); MCV 92.8 fL (80.0-100.0); Monocytes # (A) 0.4 k/uL (0-1.0); Monocytes % (A) 3 %; Neutrophils # (A) 11.7 k/uL (1.3-7.7); Neutrophils % (A) 88 %; Platelet Count 287 k/uL (150-450); RBC 4.18 m/uL (3.80-5.40); RDW 11.7 % (11.5-15.5); WBC 13.3 k/uL (3.8-10.6)
[2023-12-04 17:22] LABS: ALT 57 U/L (4-34); AST 43 U/L (14-36); Potassium 4.1 mmol/L (3.5-5.1)
[2023-12-04 17:50] LABS: Appearance,Urine Clear (Clear); Bilirubin,Urine Negative (Negative); Blood,Urine Negative (Negative); Color,Urine Light Yellow; Glucose,Urine (UA) Negative (Negative); Leukocyte Esterase,Urine Trace (Negative); Mucus,Urine Rare /hpf; Nitrite,Urine Negative (Negative); Protein,Urine Negative (Negative); RBC,Urine 1 /hpf (0-5); Specific Gravity,Urine 1.017 (1.001-1.035); Urobilinogen,Urine <2.0 mg/dL (<2.0); WBC,Urine 1 /hpf (0-5)
[2023-12-04 17:53] LABS: Ketones,Urine 2+ (Negative)
--- NOTE | 2023-12-04 18:50 | CT ---
EXAMINATION TYPE: CT abdomen pelvis w con DATE OF EXAM: 12/04/2023 COMPARISON: None HISTORY: LUQ abdominal pain, n/v/d. CT DLP: 834.7 mGycm Automated exposure control for dose reduction was used. TECHNIQUE: Helical acquisition of images was performed from the lung bases through the pelvis. CONTRAST: Performed without Oral Contrast and with IV Contrast, patient injected with 100ml mL of Isovue 300. FINDINGS: The lung bases are clear. There is a small hiatal hernia. There is surgical absence of gallbladder.. There is no biliary ductal dilatation. There is 13 cm cyst of the left lobe of the liver. There are a few additional smaller hepatic cysts. There is no focal mass or organomegaly involving the pancreas, spleen or adrenal glands. There is no solid renal mass or hydronephrosis and there is homogeneous contrast enhancement of the r enal parenchyma. The caliber the abdominal aorta is normal is no retroperitoneal adenopathy or hemorr kyle. The bowel loops are normal in caliber and there is no evidence of dilatation or obstruction. No infla mmatory changes are identified in the bowel wall or mesentery. There is no free intraperitoneal air or fluid. There is marked distention of the urinary bladder. There is a possible bladder wall base on the infer ior aspect of the urinary bladder and neoplasm is not excluded. Further evaluation is warranted. The osseous structures and soft tissues are intact. IMPRESSION: 1. Large 13 cm hepatic cyst of left lobe of the liver. 2. Marked distention of the urinary bladder with possible urinary bladder wall mass/neoplasm. Further evaluation is warranted. 3. Small hiatal hernia. 4. Cholecystectomy.
[2023-12-04] MEDS ORDERED: NALOXONE 0.4 MG/ML 1 ML VIAL IV PRN (21:47)
[2023-12-04] MEDS ORDERED: IBUPROFEN 400 MG TAB PO PRN (21:47)
[2023-12-04] MEDS ORDERED: ONDANSETRON 4 MG/2 ML VIAL IVP PRN (21:47)
[2023-12-04] MEDS ORDERED: HYDROmorphone 1 MG/ML 1 ML SYRINGE IVP PRN (21:47)
[2023-12-04] MEDS: SODIUM CHLORIDE 0.9% 1,000 ML IV SCH (23:11)
[2023-12-05] MEDS: KETOROLAC 15 MG/ML 1 ML VIAL IVP PRN (06:38)
[2023-12-05] MEDS: LOSARTAN 50 MG TAB PO SCH (12:10)
[2023-12-05] MEDS: LEVOTHYROXINE 25 MCG TAB PO SCH (12:10)
[2023-12-05] MEDS ORDERED: HYDROmorphone 0.5 MG/0.5 ML SYRINGE IVP PRN (12:22)
[2023-12-05] MEDS: PANTOPRAZOLE 40 MG TABLET PO SCH (12:45)
[2023-12-05] MEDS: HEPARIN SODIUM,PORCINE 5,000 UNIT/ML 1 ML VIAL SQ SCH (12:46)
--- NOTE | 2023-12-05 13:01 | XR ---
EXAMINATION TYPE: XR chest 1V portable DATE OF EXAM: 12/05/2023 Comparison: 09/11/2018 Clinical History: 72-year-old female CHF Findings: Heart normal size. Aorta within normal limits. A 1.4 cm nodular density in the right lower lung. Ashley elating with patient's outside 11/22/2023 CT shows no corresponding pulmonary nodule. Probably project ional artifact or costochondral calcification. In stranding atelectasis at the lung bases. No new con solidation or pleural effusion. Small hiatal hernia. Impression: Small hiatal hernia and strandy atelectasis at the lung bases. Suspect some chronic costochondral julia cifications at the right base accounting for the nodular density.
[2023-12-05 13:46] LABS: Basophils % (A) 0 %; Eosinophils # (A) 0.1 k/uL (0-0.7); Eosinophils % (A) 2 %; HCT 39.1 % (34.0-46.0); Lymphocytes # (A) 1.4 k/uL (1.0-4.8); Lymphocytes % (A) 30 %; MCH 30.7 pg (25.0-35.0); MCHC 33.1 g/dL (31.0-37.0); MCV 92.9 fL (80.0-100.0); Mean Platelet Volume 7.9; Monocytes # (A) 0.3 k/uL (0-1.0); Monocytes % (A) 7 %; Neutrophils # (A) 2.7 k/uL (1.3-7.7); Neutrophils % (A) 59 %; Platelet Count 288 k/uL (150-450); RBC 4.21 m/uL (3.80-5.40); WBC 4.6 k/uL (3.8-10.6)
--- NOTE | 2023-12-05 14:11 | P.GSCN ---
History of Present Illness Consult date: 12/05/23 History of present illness: CHIEF COMPLAINT: Abdominal pain HISTORY OF PRESENT ILLNESS: This is a 72-year-old female who presented the hospital with complaints of epigastric and left upper quadrant abdominal pain x 3 weeks. She was initially seen at [facility] 3 weeks ago for the same abdominal pain and at that time she reported that they found a liver cyst and had mild pancreatitis.Should patient was also seen in the ER 3 days ago for abdominal pain. She was able to be discharged home. Patient has an appointment with liver specialist on Monday, December 10 out of [facility]. However, patient reports that the pain continued to worsen and she was having nausea and vomiting. Decreased appetite. She reports a 6 to 7 pound weight loss over the past month. CT scan abdomen pelvis reports a large 13 cm hepatic cyst of the left lobe of the liver. Patient's abdominal surgical history includes a lap cholecystectomy and a hysterectomy. Patient denies any dark urine. She did have episode of diarrhea this morning. PAST MEDICAL HISTORY: Hypertension, Thyroid Disorder,hypothyroidism, scoliosis, kyphosis, raynauds, OA, SCOTTIE on CPAP. PAST SURGICAL HISTORY: Cholecystectomy, hysterectomy MEDICATIONS: See below ALLERGIES: See below SOCIAL HISTORY: No illicit drug use. REVIEW OF SYSTEMS: CONSTITUTIONAL: Denies fever or chills. HEENT: Denies blurred vision, vision changes, or eye pain. Denies hemoptysis CARDIOVASCULAR: Denies chest pain or pressure. RESPIRATORY: No shortness of breath. GASTROINTESTINAL: See HPI for pertinent findings HEMATOLOGIC: Denies bleeding disorders. GENITOURINARY: Denies any blood in urine or increased urinary frequency. SKIN: Denies pruitis. Denies rash. PHYSICAL EXAM: VITAL SIGNS: Reviewed GENERAL: Well-developed in no acute distress. HEENT: No sclera icterus. Extraocular movements grossly intact. Moist buccal mucosa. Head is atraumatic, normocephalic. No nasal drainage. ABDOMEN: Soft. Nondistended. Tenderness with palpation epigastric area NEUROLOGIC: Alert and oriented. Cranial nerves II through XII grossly intact. LABORATORY DATA: WBC 13.3 down to 4.6 Hgb 13.0 platelets 288 Sodium 126 potassium is 4.1 creatinine 0.52 Total bilirubin 0.9 AST 43 ALT 57 alk phos 77 lipase 246 IMAGING: CT scan abdomen pelvis reports large 13 cm hepatic cyst in the left lobe of the liver. Marked distention of the urinary bladder with possible urinary bladder wall mass/neoplasm. Small hiatal hernia. Cholecystectomy. ASSESSMENT: 1. Large 13 cm hepatic cyst left lobe of liver noted on CT 2. Nausea and vomiting 3. Epigastric abdominal pain PLAN: -Consult IR service for drainage of hepatic cyst with culture and cytology -Advance diet to full liquids -Continue supportive care -Agree with urology consult regarding bladder abnormality noted on CT scan Physician Bakery Technician note has been reviewed by physician. Signing provider agrees with the documented findings, assessment, and plan of care. Past Medical History Past Medical History: Hypertension, Thyroid Disorder Additional Past Medical History / Comment(s): hypothyroidism, scoliosis, kyphosis, raynauds, OA, SCOTTIE on CPAP. History of Any Multi-Drug Resistant Organisms: None Reported Past Surgical History: Hysterectomy Additional Past Surgical History / Comment(s): R carpal david, ganglion cyst removed on wrist. Past Anesthesia/Blood Transfusion Reactions: No Reported Reaction Past Psychological History: No Psychological Hx Reported, Anxiety Smoking Status: Never smoker Past Alcohol Use History: Occasional Past Drug Use History: None Reported - Past Family History Father Additional Family Medical History / Comment(s): Father at age 54 from a myocardial infarction. Mother Additional Family Medical History / Comment(s): Mother at age 90 from old age. She had history of hypertension and breast cancer. Brother(s) Additional Family Medical History / Comment(s): The patient has 2 brothers with coronary artery disease and one has suffered from a stroke. Sister(s) Additional Family Medical History / Comment(s): Patient has one sister with history of breast cancer and hypertension. Patient has 3 sons with no major medical problems. Medications and Allergies Home Medications Medication Instructions Recorded Confirmed Type Levothyroxine Sodium [Synthroid] 25 mcg PO DAILY 09/11/18 12/04/23 History Losartan Potassium 50 mg PO BID 09/11/18 12/04/23 History hydroCHLOROthiazide [Hydrodiuril] 12.5 mg PO DAILY 09/11/18 12/04/23 History Allergies Allergy/AdvReac Type Severity Reaction Status Date / Time cefpodoxime [From Vantin] Allergy Rash/Hives Verified 12/04/23 17:38 cefuroxime [From Ceftin] Allergy Unknown Verified 12/04/23 17:38 clarithromycin [From Biaxin] Allergy Rash/Hives Verified 12/04/23 17:38 doxycycline [From Vibra-Tabs] Allergy Rash/Hives Verified 12/04/23 17:38 morphine Allergy Rash/Hives Verified 12/04/23 17:38 nitrofurantoin Allergy Rash/Hives Verified 12/04/23 17:38 [From Macrodantin] Surgical - Exam Vital Signs Temp Pulse Resp BP Pulse Ox 97.5 F L 68 18 119/79 98 12/04/23 15:10 12/04/23 15:10 12/04/23 15:10 12/04/23 15:10 12/04/23 15:10 Results - Labs 12/05/23 12:37 12/04/23 15:59 Abnormal Lab Results - Last 24 Hours (Table) 12/04/23 12/04/23 12/04/23 Range/Units 15:24 15:59 15:59 WBC 13.3 H (3.8-10.6) k/uL Neutrophils # 11.7 H (1.3-7.7) k/uL Sodium 126 L (137-145) mmol/L Chloride 94 L (98-107) mmol/L Glucose 105 H (74-99) mg/dL Osmolality (275-295) mOsm/kg AST 43 H (14-36) U/L ALT 57 H (4-34) U/L Urine Ketones 2+ H (Negative) Ur Leukocyte Esterase Trace H (Negative) Urine Mucus Rare H (None) /hpf 12/04/23 Range/Units 23:04 WBC (3.8-10.6) k/uL Neutrophils # (1.3-7.7) k/uL Sodium (137-145) mmol/L Chloride (98-107) mmol/L Glucose (74-99) mg/dL Osmolality 262 L (275-295) mOsm/kg AST (14-36) U/L ALT (4-34) U/L Urine Ketones (Negative) Ur Leukocyte Esterase (Negative) Urine Mucus (None) /hpf Diabetes panel 12/04/23 Range/Units 15:59 Sodium 126 L (137-145) mmol/L Potassium 4.1 (3.5-5.1) mmol/L Chloride 94 L (98-107) mmol/L Carbon Dioxide 23 (22-30) mmol/L BUN 9 (7-17) mg/dL Creatinine 0.52 (0.52-1.04) mg/dL Glucose 105 H (74-99) mg/dL Calcium 9.4 (8.4-10.2) mg/dL AST 43 H (14-36) U/L ALT 57 H (4-34) U/L Alkaline Phosphatase 77 (38-126) U/L Total Protein 6.9 (6.3-8.2) g/dL Albumin 4.4 (3.5-5.0) g/dL Calcium panel 12/04/23 Range/Units 15:59 Calcium 9.4 (8.4-10.2) mg/dL Albumin 4.4 (3.5-5.0) g/dL Pituitary panel 12/04/23 Range/Units 15:59 Sodium 126 L (137-145) mmol/L Potassium 4.1 (3.5-5.1) mmol/L Chloride 94 L (98-107) mmol/L Carbon Dioxide 23 (22-30) mmol/L BUN 9 (7-17) mg/dL Creatinine 0.52 (0.52-1.04) mg/dL Glucose 105 H (74-99) mg/dL Calcium 9.4 (8.4-10.2) mg/dL Adrenal panel 12/04/23 Range/Units 15:59 Sodium 126 L (137-145) mmol/L Potassium 4.1 (3.5-5.1) mmol/L Chloride 94 L (98-107) mmol/L Carbon Dioxide 23 (22-30) mmol/L BUN 9 (7-17) mg/dL Creatinine 0.52 (0.52-1.04) mg/dL Glucose 105 H (74-99) mg/dL Calcium 9.4 (8.4-10.2) mg/dL Total Bilirubin 0.9 (0.2-1.3) mg/dL AST 43 H (14-36) U/L ALT 57 H (4-34) U/L Alkaline Phosphatase 77 (38-126) U/L Total Protein 6.9 (6.3-8.2) g/dL Albumin 4.4 (3.5-5.0) g/dL
[2023-12-05 14:32] LABS: African American GFR (CKD) >90 (>60 ml/min/1.73 sqM); Anion Gap 9 mmol/L; Blood Urea Nitrogen 4 mg/dL (7-17); Calcium 9.1 mg/dL (8.4-10.2); Carbon Dioxide 23 mmol/L (22-30); Chloride 99 mmol/L (98-107); Glucose 85 mg/dL (74-99); Magnesium 1.9 mg/dL (1.6-2.3); Non-African American GFR(CKD) >90 (>60 ml/min/1.73 sqM); Potassium 3.9 mmol/L (3.5-5.1); Sodium 131 mmol/L (137-145)
[2023-12-05 17:10] LABS: Prothrombin Time 10.7 sec (10.0-12.5)
--- NOTE | 2023-12-06 01:03 | HP ---
HISTORY AND PHYSICAL CHIEF COMPLAINT: Abdominal pain. HISTORY OF PRESENT ILLNESS: This is a 72-year-old woman, who was admitted with abdominal pain which is mostly situated in the left upper abdomen in the loin area which started about 3 weeks ago. The patient was seen at [facility]. The patient apparently had a cyst in the liver and pancreatitis according to [facility] and the pain was increasing and the patient came to [facility]. The patient was holding the urine according to her and the CT scan of the abdomen, which I reviewed personally showed multiple abnormalities including large 13 cm hepatic cyst on the left lobe of the liver and marked distention of the urinary bladder with possible urinary bladder mass with neoplasm and small hiatal hernia. Cholecystectomy was also noted. There is no history of any fever, rigors, or chills at this time. Please note, the patient was holding urine before going to the CT scan according to her. PAST MEDICAL HISTORY: Reviewed include hypertension, hypothyroidism. Rest of the chart and rest of the history reviewed. HOME MEDICATIONS: Reviewed include losartan. Doses and rest of medications noted. ALLERGIES: Multiple allergies, Vantin. FAMILY HISTORY: History of myocardial infarction. SOCIAL HISTORY: No history of smoke. Occasional alcohol intake. REVIEW OF SYSTEMS: Fourteen-point review is negative except as mentioned earlier. PHYSICAL EXAMINATION: VITAL SIGNS: Pulse is 76, blood pressure 140/72, respirations 16. HEENT: Conjunctivae normal. NECK: No JVD. CARDIOVASCULAR: S1, S2. RESPIRATIONS: Breath sounds diminished at the bases. A few scattered rhonchi. No crackles. ABDOMEN: Soft, minimal discomfort in the left loin area present. No guarding noted. No mass. LEGS: No edema. NERVOUS SYSTEM: Nonfocal. SKIN: No ulcer, rash, bleeding. JOINTS: No active deforming arthropathy. LABORATORY DATA: Sodium 126, rest of the labs are noted. ASSESSMENT: 1. Left-sided abdominal pain, rule out ureteral colic and nephrolithiasis. 2. Bladder distention in the CT scan. 3. Massive hepatic cyst. 4. History of recent mild pancreatitis. 5. Hyponatremia. 6. Hypovolemic. 7. Hypertension. 8. Hypothyroidism. 9. Raynaud. 10.Sleep apnea, on CPAP. 11.Multiple complex medical issues. RECOMMENDATIONS AND DISCUSSION: This is a 72-year-old woman presented with multiple complex medical issues, we will monitor the patient closely. We will resume the home medications. Continue cautious IV hydration. Nephrology evaluation for hyponatremia. Otherwise, Urology consultation for the abnormal CAT scan. The possibility of liver with noted bladder neoplasm as also mentioned in the CT scan. Symptomatic treatment of pain. The white count is slightly elevated, but there are no obvious signs of infection at this time. Amylase and lipase also normal. Continue to monitor. Surgical evaluation will be sought for the hepatic cyst and continue to monitor. Prognosis guarded. Further recommendations to follow. MMODL / IJN: [id number] /
--- NOTE | 2023-12-06 08:51 | P.GSCN ---
History of Present Illness Consult date: 12/06/23 History of present illness: 72-year-old female admitted to the hospital with abdominal pain. She is found to have a very large hepatic cyst. Her pain is in the left upper quadrant. She had a computed tomography scan that showed a possible filling defect in the Will of the urinary bladder. The bladder was quite distended at the time computed tomography scan. We're asked see the patient for this reason. She is completely asymptomatic urologically. There's been no infections or hematuria. There is no stones a. The CAT scan has been reviewed and is noted as above. Her urinalysis is clear. Review of Systems All systems: negative - Constitutional Denies fever, Denies weight loss - EENT Eyes: denies blurred vision Ears, nose, mouth and throat: Denies dysphagia - Cardiovascular Denies chest pain, Denies shortness of breath - Respiratory Denies cough, Denies 7 - Gastrointestinal Reports as per HPI - Genitourinary Genitourinary: Denies dysuria, Denies hematuria - Integumentary Denies rash, Denies unusual bruising - Neurological Denies headaches, Denies syncope - Hematologic/Lymphatic Denies easy bleeding, Denies easy bruising Past Medical History Past Medical History: Hypertension, Sleep Apnea/CPAP/BIPAP, Thyroid Disorder Additional Past Medical History / Comment(s): hypothyroidism, scoliosis, kyphosis, raynauds, OA, SCOTTIE on CPAP. History of Any Multi-Drug Resistant Organisms: None Reported Past Surgical History: Cholecystectomy, Hysterectomy Additional Past Surgical History / Comment(s): R carpal tunnel, ganglion cyst removed on right wrist, nasal septal defect repair Past Anesthesia/Blood Transfusion Reactions: No Reported Reaction Past Psychological History: Anxiety Smoking Status: Former smoker Past Alcohol Use History: Occasional Additional Past Alcohol Use History / Comment(s): The patient was smoking 27 years ago. She denies any illicit drug use. She drinks alcohol about 3 times per week. She was at home with her . She does have a CPAP. No oxygen or nebulizer. No devices for ambulation. Past Drug Use History: None Reported - Past Family History Father Additional Family Medical History / Comment(s): Father at age 54 from a myocardial infarction. Mother Additional Family Medical History / Comment(s): Mother at age 90 from old age. She had history of hypertension and breast cancer. Brother(s) Additional Family Medical History / Comment(s): The patient has 2 brothers with coronary artery disease and one has suffered from a stroke. Sister(s) Additional Family Medical History / Comment(s): Patient has one sister with history of breast cancer and hypertension. Patient has 3 sons with no major medical problems. Medications and Allergies Home Medications Medication Instructions Recorded Confirmed Type Levothyroxine Sodium [Synthroid] 25 mcg PO DAILY 09/11/18 12/04/23 History Losartan Potassium 50 mg PO BID 09/11/18 12/04/23 History hydroCHLOROthiazide [Hydrodiuril] 12.5 mg PO DAILY 09/11/18 12/04/23 History Allergies Allergy/AdvReac Type Severity Reaction Status Date / Time cefpodoxime [From Vantin] Allergy Rash/Hives Verified 12/04/23 17:38 cefuroxime [From Ceftin] Allergy Unknown Verified 12/04/23 17:38 clarithromycin [From Biaxin] Allergy Rash/Hives Verified 12/04/23 17:38 doxycycline [From Vibra-Tabs] Allergy Rash/Hives Verified 12/04/23 17:38 morphine Allergy Rash/Hives Verified 12/04/23 17:38 nitrofurantoin Allergy Rash/Hives Verified 12/04/23 17:38 [From Macrodantin] Surgical - Exam Vital Signs Temp Pulse Resp BP Pulse Ox 97.5 F L 68 18 119/79 98 12/04/23 15:10 12/04/23 15:10 12/04/23 15:10 12/04/23 15:10 12/04/23 15:10 Results - Labs 12/05/23 12:37 12/05/23 12:37 Abnormal Lab Results - Last 24 Hours (Table) 12/05/23 Range/Units 12:37 Sodium 131 L (137-145) mmol/L BUN 4 L (7-17) mg/dL Creatinine 0.47 L (0.52-1.04) mg/dL Diabetes panel 12/05/23 Range/Units 12:37 Sodium 131 L (137-145) mmol/L Potassium 3.9 (3.5-5.1) mmol/L Chloride 99 (98-107) mmol/L Carbon Dioxide 23 (22-30) mmol/L BUN 4 L (7-17) mg/dL Creatinine 0.47 L (0.52-1.04) mg/dL Glucose 85 (74-99) mg/dL Calcium 9.1 (8.4-10.2) mg/dL Thyroid panel 12/05/23 Range/Units 12:37 TSH 4.330 (0.465-4.680) mIU/L Calcium panel 12/05/23 Range/Units 12:37 Calcium 9.1 (8.4-10.2) mg/dL Pituitary panel 12/05/23 Range/Units 12:37 Sodium 131 L (137-145) mmol/L Potassium 3.9 (3.5-5.1) mmol/L Chloride 99 (98-107) mmol/L Carbon Dioxide 23 (22-30) mmol/L BUN 4 L (7-17) mg/dL Creatinine 0.47 L (0.52-1.04) mg/dL Glucose 85 (74-99) mg/dL Calcium 9.1 (8.4-10.2) mg/dL TSH 4.330 (0.465-4.680) mIU/L Adrenal panel 12/05/23 Range/Units 12:37 Sodium 131 L (137-145) mmol/L Potassium 3.9 (3.5-5.1) mmol/L Chloride 99 (98-107) mmol/L Carbon Dioxide 23 (22-30) mmol/L BUN 4 L (7-17) mg/dL Creatinine 0.47 L (0.52-1.04) mg/dL Glucose 85 (74-99) mg/dL Calcium 9.1 (8.4-10.2) mg/dL - Imaging CT scan - abdomen: report reviewed, image reviewed CT scan - pelvis: report reviewed, image reviewed Assessment and Plan Assessment: impression: Abdominal pain. Hepatic cyst. Abnormal computed tomography scan of the bladder rule out mass Recommendations: I discussed this with the patient. Since she is asymptomatic with a clear urine at unlikely this is anything however based on the appearance of the computed tomography scan cystoscopy as an outpatient should be performed. I like to see her in follow-up. This is been explained to the patient.
[2023-12-06 10:41] LABS: Basophils # (A) 0.04 X 10*3/uL (0.00-0.10); Basophils % (A) 0.9 %; Eosinophils # (A) 0.11 X 10*3/uL (0.04-0.35); Eosinophils % (A) 2.4 %; HCT 37.6 % (37.2-46.3); HGB 12.5 g/dL (12.0-15.0); Lymphocytes # (A) 1.59 X 10*3/uL (0.90-5.00); Lymphocytes % (A) 34.7 %; MCH 30.8 pg (27.0-32.0); MCHC 33.2 g/dL (32.0-37.0); MCV 92.6 FL (80.0-97.0); Mean Platelet Volume 10.2 FL (9.5-12.2); Monocytes # (A) 0.32 X 10*3/uL (0.20-1.00); NRBC Per 100 WBC 0 X 10*3/uL (0.00-0.01); Neutrophils # (A) 2.51 X 10*3/uL (1.80-7.70); Neutrophils % (A) 54.8 %; Platelet Count 290 X 10*3/uL (140-440); RBC 4.06 X 10*6/uL (4.10-5.20); RDW 11.8 % (11.5-14.5); WBC 4.58 X 10*3/uL (4.50-10.00)
--- NOTE | 2023-12-06 12:20 | CT ---
EXAMINATION TYPE: CT guided abscess drainage DATE OF EXAM: 12/06/2023 COMPARISON: 12/04/2023, ultrasound 09/12/2018 HISTORY: hepatic cyst aspiration CT DLP: 1090 mGycm The procedure is discussed with the patient, the risks, complications, benefits and alternatives, wer e discussed and any questions were answered. Informed consent was obtained. The patient is placed s upine on the CT table, prepped and draped in the usual sterile fashion. Utilizing a 18-gauge core biopsy needle access into the left renal hypodense suspect a cyst was achie hailey with aspiration of approximately 2 cc of bloody material. Typical of a serous cyst fluid was not present. Case was discussed with referring clinician and procedure was discontinued. Pathology pendi ng. All elements of maximal barrier and sterile technique were utilized. The patient remained stabl e throughout the procedure with no immediate postprocedural complication. IMPRESSION: 1. CT-guided fine-needle aspiration left hepatic cyst.
--- NOTE | 2023-12-06 12:42 | P.NPCON ---
History of Present Illness - Reason for Consult hyponatremia - History of Present Illness Reason for consultation: Hyponatremia History of present illness: Patient is a 72-year-old female seen in renal consultation for hyponatremia. Patient sodium level on admission December 04, 2023 was 126 and up to 131 yesterday. Patient is currently receiving normal saline at 75 cc an hour. Patient came to the hospital due to nausea vomiting and diarrhea which started about 1 hour prior to admission. Patient states oral intake has been good. She denies chest pain or shortness of breath. She admits to occasional use of nonsteroidals. No history of diabetes. Denies family history of renal disease. Denies personal history of malignancy. She denies excessive fluid intake. Patient states she drinks about 30 to 40 ounces of water and 1 cup of coffee. No alcohol use. She was taking hydrochlorothiazide outpatient for blood pressure control. Imaging showed hepatic cyst and possible bladder mass. She has been seen by urology and has noted that further workup will be done outpatient. Vital signs are stable. General: No acute distress. HEENT: Head exam is unremarkable. LUNGS: No audible rhonchi or wheezes. HEART: Rate and Rhythm are regular. ABDOMEN: Nontender. EXTREMITITES: No edema. Past Medical History Past Medical History: Hypertension, Sleep Apnea/CPAP/BIPAP, Thyroid Disorder Additional Past Medical History / Comment(s): hypothyroidism, scoliosis, kyphosis, raynauds, OA, SCOTTIE on CPAP. History of Any Multi-Drug Resistant Organisms: None Reported Past Surgical History: Cholecystectomy, Hysterectomy Additional Past Surgical History / Comment(s): R carpal tunnel, ganglion cyst removed on right wrist, nasal septal defect repair Past Anesthesia/Blood Transfusion Reactions: No Reported Reaction Past Psychological History: Anxiety Smoking Status: Former smoker Past Alcohol Use History: Occasional Additional Past Alcohol Use History / Comment(s): The patient was smoking 27 years ago. She denies any illicit drug use. She drinks alcohol about 3 times per week. She was at home with her . She does have a CPAP. No oxygen or nebulizer. No devices for ambulation. Past Drug Use History: None Reported - Past Family History Father Additional Family Medical History / Comment(s): Father at age 54 from a myocardial infarction. Mother Additional Family Medical History / Comment(s): Mother at age 90 from old age. She had history of hypertension and breast cancer. Brother(s) Additional Family Medical History / Comment(s): The patient has 2 brothers with coronary artery disease and one has suffered from a stroke. Sister(s) Additional Family Medical History / Comment(s): Patient has one sister with history of breast cancer and hypertension. Patient has 3 sons with no major medical problems. Medications and Allergies Home Medications Medication Instructions Recorded Confirmed Type Levothyroxine Sodium [Synthroid] 25 mcg PO DAILY 09/11/18 12/04/23 History Losartan Potassium 50 mg PO BID 09/11/18 12/04/23 History hydroCHLOROthiazide [Hydrodiuril] 12.5 mg PO DAILY 09/11/18 12/04/23 History Allergies Allergy/AdvReac Type Severity Reaction Status Date / Time cefpodoxime [From Vantin] Allergy Rash/Hives Verified 12/04/23 17:38 cefuroxime [From Ceftin] Allergy Unknown Verified 12/04/23 17:38 clarithromycin [From Biaxin] Allergy Rash/Hives Verified 12/04/23 17:38 doxycycline [From Vibra-Tabs] Allergy Rash/Hives Verified 12/04/23 17:38 morphine Allergy Rash/Hives Verified 12/04/23 17:38 nitrofurantoin Allergy Rash/Hives Verified 12/04/23 17:38 [From Macrodantin] Physical Exam Vitals: Vital Signs Temp Pulse Pulse Resp BP BP Pulse Ox 12/06/23 12:00 71 150/73 98 12/06/23 11:30 82 143/79 97 12/06/23 11:15 98.3 F 72 16 158/78 99 12/06/23 11:00 77 16 156/78 98 12/06/23 10:40 76 16 155/78 98 12/06/23 10:33 77 16 157/79 98 12/06/23 07:14 98 F 75 16 149/79 98 12/06/23 02:00 98.1 F 73 16 169/81 99 12/05/23 20:00 16 12/05/23 19:06 98 F 67 16 152/78 97 12/05/23 17:27 98.0 F 74 16 167/71 98 12/05/23 17:03 98.0 F 67 16 157/80 98 12/05/23 15:32 97.7 F 80 16 156/75 98 Intake and Output 12/05/23 12/06/23 12/06/23 22:59 06:59 14:59 Intake Total 75 Balance 75 Intake: Intake, IV Titration 75 Amount Sodium Chloride 0.9% 1, 75 000 ml @ 75 mls/hr IV . [id number] [facility] Rx#:[id number] Other: Voiding Method Toilet # Voids 0 3 1 # Bowel Movements 0 Weight 71.668 kg Results - Lab Results Most recent lab results Calcium 9.1 mg/dL (8.4-10.2) 12/05/23 12:37 Magnesium 1.9 mg/dL (1.6-2.3) 12/05/23 12:37 12/06/23 07:56 12/05/23 12:37 Assessment and Plan Plan: Assessment: 1. Hypovolemic hyponatremia further worsened with the use of thiazide diuretic and NSAID use. Improved with IV hydration. Serum osmolality 262. Urine sodium 70. Urine osmolality 473. Sodium level 131 as of yesterday. 2. Benign hypertension. 3. Hepatic cyst being followed by surgery. 4. Possible bladder mass. Seen by urology. Cystoscopy outpatient. Plan: Maintain IV fluids. Encouraged oral intake. Add 1500 cc fluid restriction. Stop nonsteroidals. Avoid thiazide diuretics in future. Add amlodipine 5 mg once daily Repeat labs in the morning. Thank you for the consultation. I will continue to follow the patient with you during her hospital stay.
[2023-12-06] MEDS: amLODIPine 5 MG TAB PO SCH (13:18)
[2023-12-06] MEDS: ACETAMINOPHEN TAB 325 MG TAB PO PRN (13:21)
--- NOTE | 2023-12-06 13:35 | P.PN ---
Subjective Progress Note Date: 12/06/23 CHIEF COMPLAINT: Abdominal pain HISTORY OF PRESENT ILLNESS: Patient presented with abdominal pain and evidence of a large cyst. She had CT-guided fine-needle aspiration left hepatic cyst with 2 cc of bloody material. Case was discussed with Dr. Bull and Dr. Eid. Afebrile. WBC 4.58 Hgb 12.5 Patient seen and examined by Dr. Eid PHYSICAL EXAM: VITAL SIGNS: Reviewed. GENERAL: Well-developed in no acute distress. ABDOMEN: Soft. Nondistended. NEUROLOGIC: Alert and oriented. Cranial nerves II through XII grossly intact. ASSESSMENT: 1. Large 13 cm hepatic cyst left lobe of liver noted on CT 2. Nausea and vomiting 4. Hyponatremia 5. Possible bladder mass noted on CT. Seen by urology recommending cystoscopy outpatient PLAN: -Advance diet to regular -Fluid restrictions per nephrology for hyponatremia -Continue to monitor Physician [employer] note has been reviewed by physician. Signing provider agrees with the documented findings, assessment, and plan of care. Objective - Vital Signs Vital signs: Vital Signs Temp 98.3 F 12/06/23 11:15 Pulse 69 12/06/23 12:39 Resp 17 12/06/23 12:39 BP 145/82 12/06/23 12:39 Pulse Ox 95 12/06/23 12:39 FiO2 Intake & Output 12/05/23 12/06/23 12/06/23 18:59 06:59 18:59 Intake Total 75 Balance 75 Weight 71.668 kg Intake: Intake, IV Titration 75 Amount Sodium Chloride 0.9% 1, 75 000 ml @ 75 mls/hr IV . [id number] [facility] Rx#:[id number] Other: Voiding Method Toilet # Voids 3 1 # Bowel Movements 0 - Labs CBC & Chem 7: 12/06/23 07:56 12/05/23 12:37 Labs: Abnormal Lab Results - Last 24 Hours (Table) 12/05/23 12/06/23 Range/Units 12:37 07:56 RBC 4.06 L (4.10-5.20) X 10*6/uL Sodium 131 L (137-145) mmol/L BUN 4 L (7-17) mg/dL Creatinine 0.47 L (0.52-1.04) mg/dL
--- NOTE | 2023-12-06 14:45 | PN ---
PROGRESS NOTE DATE OF SERVICE: 12/06/2023 SUBJECTIVE: This 72-year-old woman admitted with abdominal pain, had significant mass as well as hepatic cyst. The drainage was attempted by Radiology, obtained only 2 mL of bloody material. The patient is also complaining of severe abdominal pain. Urology is recommended outpatient followup and possible cystoscopy. PAST MEDICAL HISTORY: Reviewed. REVIEW OF SYSTEMS: A 14-point review is negative except as mentioned earlier. MEDICATIONS: Reviewed. PHYSICAL EXAMINATION: VITAL SIGNS: Pulse is 71, blood pressure 150/76, respirations 16. CHEST: Clear to auscultation. CARDIOVASCULAR: S1 and S2. ABDOMEN: Soft. Mild diffuse discomfort. No guarding and rigidity. LABORATORY DATA: Reviewed. WBC normal. ASSESSMENT: 1. Left-sided abdominal pain, possibly secondary from large hepatic cyst and compression. 2. Status post paracentesis of the hepatic cyst showing hemorrhagic fluid, possibly bleeding into the cyst. 3. Bladder distention in the CAT scan for outpatient cystoscopy per Urology. 4. History of recent mild pancreatitis. 5. Hyponatremia. 6. Hypovolemia. 7. Hypertension. 8. Hypothyroidism. 9. Sleep apnea. 10.Multiple complex medical issues. RECOMMENDATIONS AND DISCUSSION: This 72-year-old woman presented with multiple complex medical issues. We will monitor the patient closely. The exact nature of the hepatic cyst is undetermined at this time. We will continue the symptomatic treatment. Sodium is improving at this time. We will closely follow with multiple consultants and closely follow with surgery. PT/INR has been normal. I would also recommend a PTT also and guarded prognosis. Further recommendations to follow. See orders for details. MMODL / IJN: [id number] /
[2023-12-06 15:30] LABS: ALT 43 U/L (8-44); AST 22 U/L (13-35); Albumin 4.4 g/dL (3.8-4.9); Albumin/Globulin Ratio 1.91 Ratio (1.60-3.17); Alkaline Phosphatase 89 U/L (41-126); BUN/Creat Ratio <7.00 Ratio (12.00-20.00); Blood Urea Nitrogen <3.5 mg/dL (9.0-27.0); Calcium 9.4 mg/dL (8.7-10.3); Carbon Dioxide 23.8 mmol/L (21.6-31.8); Chloride 108 mmol/L (96-109); Globulin 2.3 g/dL (1.6-3.3); Glucose 97 mg/dL (70-110); Potassium 4.2 mmol/L (3.5-5.5); Sodium 143 mmol/L (135-145); Total Bilirubin 0.3 mg/dL (0.3-1.2); Total Protein 6.7 g/dL (6.2-8.2)
[2023-12-06] MEDS: SODIUM CHLORIDE 0.45% 1,000 ML IV SCH (20:00)
[2023-12-07 08:03] LABS: ALT 28 U/L (4-34); AST 26 U/L (14-36); African American GFR (CKD) >90 (>60 ml/min/1.73 sqM); Albumin 3.9 g/dL (3.5-5.0); Albumin/Globulin Ratio 1.6; Alkaline Phosphatase 74 U/L (38-126); Anion Gap 5 mmol/L; Blood Urea Nitrogen 3 mg/dL (7-17); Calcium 9.3 mg/dL (8.4-10.2); Carbon Dioxide 27 mmol/L (22-30); Chloride 106 mmol/L (98-107); Globulin 2.4 g/dL; Glucose 98 mg/dL (74-99); Magnesium 1.8 mg/dL (1.6-2.3); Non-African American GFR(CKD) >90 (>60 ml/min/1.73 sqM); Potassium 3.8 mmol/L (3.5-5.1); Sodium 138 mmol/L (137-145); Total Bilirubin 0.8 mg/dL (0.2-1.3); Total Protein 6.3 g/dL (6.3-8.2)
[2023-12-07 10:52] LABS: Basophils # (A) 0.04 X 10*3/uL (0.00-0.10); Basophils % (A) 0.7 %; Eosinophils # (A) 0.13 X 10*3/uL (0.04-0.35); Eosinophils % (A) 2.2 %; HCT 34.5 % (37.2-46.3); HGB 11.3 g/dL (12.0-15.0); Lymphocytes # (A) 1.23 X 10*3/uL (0.90-5.00); Lymphocytes % (A) 20.7 %; MCHC 32.8 g/dL (32.0-37.0); MCV 94.5 FL (80.0-97.0); Mean Platelet Volume 10.3 FL (9.5-12.2); Monocytes % (A) 5.1 %; NRBC Per 100 WBC 0 X 10*3/uL (0.00-0.01); Neutrophils # (A) 4.23 X 10*3/uL (1.80-7.70); Neutrophils % (A) 71.1 %; Platelet Count 302 X 10*3/uL (140-440); RBC 3.65 X 10*6/uL (4.10-5.20); RDW 12.1 % (11.5-14.5); WBC 5.94 X 10*3/uL (4.50-10.00)
--- NOTE | 2023-12-07 14:48 | P.PN ---
Subjective Progress Note Date: 12/07/23 CHIEF COMPLAINT: Abdominal pain due to hepatic cyst HISTORY OF PRESENT ILLNESS: The patient is a 72-year-old female admitted with abdominal pain due to hepatic cyst. Reports feeling much better today. Family friends are at bedside. She is tolerating diet. No reports of moderate abdominal pain. ROS: No reports of nausea and vomiting. No fevers or chills. No new chest pain. No productive sputum PHYSICAL EXAM: VITAL SIGNS: Reviewed CONSTITUTIONAL: Well developed and in no acute distress. EYES: Conjuctivae without sclera icterus. Extraocular movements grossly intact. HEAD, EARS, NOSE, THROAT: Moist buccal mucosa. Head is atraumatic, normocephalic. Hears conversational speech. No nasal drainage. RESPIRATORY: Non-labored respirations and equal bilateral excursions. CARDIOVASCULAR: Palpable 2+ radial pulses. ABDOMEN: No peritonitis. Nontender. MUSCULOSKELETAL: No gross deformity of the lower extremities noted. No clubbing. No cyanosis. SKIN: Good skin turgor. Well perfused. NEUROLOGIC: Cranial nerves II through XII grossly intact. No focal or lateralizing signs. PSYCH: Appropriate affect. Alert and oriented to person, place and time. CLINICAL LABS: Reviewed. WBC normal. Hemoglobin trending down 12.5-11.3, anemia STUDIES: CT of the abdomen pelvis reviewed from 12/04/2023 demonstrates a large left liver cyst more than 40% volume of the liver. This is my independent interpretation. Moderately distended bladder. REPORTS: CT abdomen pelvis report demonstrates 13 cm left liver lobe cyst. Neoplasm of the bladder cannot be excluded. Attempted needle aspiration of liver cyst with only 2 cc obtained on 12/06/2023 ASSESSMENT: 1. Liver cyst with abdominal pain 2. Anemia, new 3. Bladder neoplasm, new per CT scan PLAN: 1. At this time, diet as tolerated. 2. Await fluid cultures and cell cytology for further management. 3. For symptomatic simple cyst, may benefit from marsupialization which may be done as outpatient. Objective - Vital Signs Vital signs: Vital Signs Temp 98.5 F 12/07/23 12:13 Pulse 80 12/07/23 12:13 Resp 15 12/07/23 12:13 BP 120/68 12/07/23 12:13 Pulse Ox 96 12/07/23 12:13 FiO2 Intake & Output 12/06/23 12/07/2312/06/24 18:59 06:59 18:59 Intake Total 240 240 480 Balance 240 240 480 Intake: Oral 240 240 480 Other: Voiding Method Toilet Toilet # Voids 2 3 1 # Bowel Movements 0 1 - Labs CBC & Chem 7: 12/07/23 06:23 12/07/23 06:23 Labs: Abnormal Lab Results - Last 24 Hours (Table) 12/06/23 12/06/23 12/06/23 Range/Units 07:56 14:39 14:39 RBC (4.10-5.20) X 10*6/uL Hgb (12.0-15.0) g/dL Hct (37.2-46.3) % BUN <3.5 L (9.0-27.0) mg/dL Creatinine 0.5 L (0.6-1.5) mg/dL BUN/Creatinine Ratio <7.00 L (12.00-20.00) Ratio C-Reactive Protein 2.3 H (<1.0) mg/dL Procalcitonin 0.12 H (0.02-0.09) ng/mL 12/07/23 12/07/23 Range/Units 06:23 06:23 RBC 3.65 L (4.10-5.20) X 10*6/uL Hgb 11.3 L (12.0-15.0) g/dL Hct 34.5 L (37.2-46.3) % BUN 3 L (9.0-27.0) mg/dL Creatinine 0.49 L (0.6-1.5) mg/dL BUN/Creatinine Ratio (12.00-20.00) Ratio C-Reactive Protein (<1.0) mg/dL Procalcitonin (0.02-0.09) ng/mL
--- NOTE | 2023-12-07 14:55 | P.PN ---
Subjective Progress Note Date: 12/07/23 Patient seen in follow-up for hyponatremia. Vital signs are stable. General: No acute distress. HEENT: Head exam is unremarkable. LUNGS: No audible rhonchi or wheezes. HEART: Rate and Rhythm are regular. ABDOMEN: Nontender. EXTREMITITES: No edema. Objective - Vital Signs Vital signs: Vital Signs Temp 98.5 F 12/07/23 12:13 Pulse 80 12/07/23 12:13 Resp 15 12/07/23 12:13 BP 120/68 12/07/23 12:13 Pulse Ox 96 12/07/23 12:13 FiO2 Intake & Output 12/06/23 12/07/23 12/07/23 18:59 06:59 18:59 Intake Total 240 240 480 Balance 240 240 480 Intake: Oral 240 240 480 Other: Voiding Method Toilet Toilet # Voids 2 3 1 # Bowel Movements 0 1 - Labs CBC & Chem 7: 12/07/23 06:23 12/07/23 06:23 Labs: Abnormal Lab Results - Last 24 Hours (Table) 12/06/23 12/06/23 12/06/23 Range/Units 07:56 14:39 14:39 RBC (4.10-5.20) X 10*6/uL Hgb (12.0-15.0) g/dL Hct (37.2-46.3) % BUN <3.5 L (9.0-27.0) mg/dL Creatinine 0.5 L (0.6-1.5) mg/dL BUN/Creatinine Ratio <7.00 L (12.00-20.00) Ratio C-Reactive Protein 2.3 H (<1.0) mg/dL Procalcitonin 0.12 H (0.02-0.09) ng/mL 12/07/23 12/07/23 Range/Units 06:23 06:23 RBC 3.65 L (4.10-5.20) X 10*6/uL Hgb 11.3 L (12.0-15.0) g/dL Hct 34.5 L (37.2-46.3) % BUN 3 L (9.0-27.0) mg/dL Creatinine 0.49 L (0.6-1.5) mg/dL BUN/Creatinine Ratio (12.00-20.00) Ratio C-Reactive Protein (<1.0) mg/dL Procalcitonin (0.02-0.09) ng/mL Assessment and Plan Assessment: Assessment: 1. Hypovolemic hyponatremia further worsened with the use of thiazide diuretic and NSAID use. Improved with IV hydration. Serum osmolality 262. Urine sodium 70. Urine osmolality 473. Sodium level 138 today. 2. Benign hypertension. 3. Hepatic cyst being followed by surgery. 4. Possible bladder mass. Seen by urology. Cystoscopy outpatient. Plan: Encouraged oral intake. Discontinue IVF 1500 cc fluid restriction. Avoid thiazide diuretics in future. Amlodipine 5 mg once daily Clear for discharge form nephrology standpoint.
--- NOTE | 2023-12-07 20:13 | PN ---
PROGRESS NOTE DATE OF SERVICE: 12/07/2023 SUBJECTIVE: This is a 72-year-old woman, who was admitted with abdominal pain, also had a significant cyst in the left lobe. The patient had Interventional Radiology aspiration. Cytology is pending at this time. PHYSICAL EXAMINATION: VITAL SIGNS: Pulse is 80, blood pressure 120/60, and respirations 15. CHEST: Clear to auscultation. CARDIOVASCULAR: S1 and S2. ABDOMEN: Soft. Mild diffuse discomfort. No mass palpable. No guarding or rigidity. LABORATORY DATA: Noted. ASSESSMENT: 1. Left-sided abdominal pain possibly secondary from large hepatic cyst and compression. 2. Status post attempted paracentesis with hepatic cyst showing 2 mL of hemorrhagic fluid, possibly bleeding into the cyst. 3. Bladder distention in the CAT scan for outpatient cystoscopy by Urology. 4. History of recent mild pancreatitis. 5. Hyponatremia. 6. Multiple complex medical issues. RECOMMENDATIONS: I recommend to continue current management and continue symptomatic treatment. Otherwise, as mentioned earlier, I would recommend await the cytology reports and continue symptomatic treatment. The patient needs to follow up with Surgery and multiple other consultants also. Prognosis guarded. Further recommendations to follow. MMODL / IJN: [id number] /
--- NOTE | 2023-12-08 11:57 | P.PN ---
Subjective Progress Note Date: 12/08/23 CHIEF COMPLAINT: Abdominal pain due to hepatic cyst HISTORY OF PRESENT ILLNESS: The patient is a 72-year-old female admitted with abdominal pain due to hepatic cyst. She is sitting in chair. No abdominal pain. ROS: No reports of nausea and vomiting. No fevers or chills. No new chest pain. No productive sputum PHYSICAL EXAM: VITAL SIGNS: Reviewed CONSTITUTIONAL: Well developed and in no acute distress. EYES: Conjuctivae without sclera icterus. Extraocular movements grossly intact. HEAD, EARS, NOSE, THROAT: Moist buccal mucosa. Head is atraumatic, normocephalic. Hears conversational speech. No nasal drainage. RESPIRATORY: Non-labored respirations and equal bilateral excursions. CARDIOVASCULAR: Palpable 2+ radial pulses. ABDOMEN: No peritonitis. Nontender. MUSCULOSKELETAL: No gross deformity of the lower extremities noted. No clubbing. No cyanosis. SKIN: Good skin turgor. Well perfused. NEUROLOGIC: Cranial nerves II through XII grossly intact. No focal or lateralizing signs. PSYCH: Appropriate affect. Alert and oriented to person, place and time. CLINICAL LABS: Reviewed. Labs pending today. ASSESSMENT: 1. Liver cyst with abdominal pain 2. Anemia, new 3. Bladder neoplasm, new per CT scan PLAN: 1. Still awaiting pathology and cultures from her hepatic cyst aspiration 2. Patient is clinically stable and may be discharged once medically cleared Objective - Vital Signs Vital signs: Vital Signs Temp 98.4 F 12/08/23 07:06 Pulse 78 12/08/23 07:06 Resp 18 12/08/23 07:06 BP 147/80 12/08/23 07:06 Pulse Ox 94 L 12/08/23 07:06 FiO2 Intake & Output 12/07/23 12/08/23 12/08/23 18:59 06:59 18:59 Intake Total 720 240 236 Balance 720 240 236 Intake: Oral 720 240 236 Other: Voiding Method Toilet Toilet Toilet # Voids 1 2 # Bowel Movements 1 - Labs CBC & Chem 7: 12/07/23 06:23 12/07/23 06:23 Labs: Microbiology - Last 24 Hours (Table) 12/06/23 11:00 Gram Stain - Preliminary Cyst Wound Culture - Preliminary
--- NOTE | 2023-12-08 14:38 | P.PN ---
Subjective Progress Note Date: 12/08/23 Patient seen in follow-up for hyponatremia. No new complaints. Vital signs are stable. General: No acute distress. HEENT: Head exam is unremarkable. LUNGS: No audible rhonchi or wheezes. HEART: Rate and Rhythm are regular. ABDOMEN: Nontender. EXTREMITITES: No edema. Objective - Vital Signs Vital signs: Vital Signs Temp 98.0 F 12/08/23 12:20 Pulse 68 12/08/23 12:20 Resp 18 12/08/23 12:20 BP 122/74 12/08/23 12:20 Pulse Ox 94 L 12/08/23 12:20 FiO2 Intake & Output 12/07/23 12/08/23 12/08/23 18:59 06:59 18:59 Intake Total 720 240 476 Balance 720 240 476 Intake: Oral 720 240 476 Other: Voiding Method Toilet Toilet Toilet # Voids 1 2 # Bowel Movements 1 - Labs CBC & Chem 7: 12/07/23 06:23 12/07/23 06:23 Labs: Microbiology - Last 24 Hours (Table) 12/06/23 11:00 Gram Stain - Preliminary Cyst Wound Culture - Preliminary Assessment and Plan Assessment: Assessment: 1. Hypovolemic hyponatremia further worsened with the use of thiazide diuretic and NSAID use. Improved with IV hydration. Serum osmolality 262. Urine sodium 70. Urine osmolality 473. Sodium level 138 today. 2. Benign hypertension. 3. Hepatic cyst being followed by surgery. 4. Possible bladder mass. Seen by urology. Cystoscopy outpatient. Plan: Encouraged oral intake. Discontinue IVF 1500 cc fluid restriction. Avoid thiazide diuretics in future. Amlodipine 5 mg once daily Clear for discharge form nephrology standpoint.
[2023-12-09 00:49] VITALS: RESP 16
--- NOTE | 2023-12-09 13:03 | P.PN ---
Subjective patient is seen for follow-up for hyponatremia. No significant complaints today. Serum sodium was 138 on 12/07/2019 Objective - Vital Signs Vital signs: Vital Signs Temp 98.0 F 12/09/23 07:08 Pulse 66 12/09/23 09:10 Resp 16 12/09/23 09:10 BP 146/77 12/09/23 07:08 Pulse Ox 96 12/09/23 07:08 FiO2 Intake & Output 12/08/23 12/09/23 12/09/23 18:59 06:59 18:59 Intake Total 476 240 Balance 476 240 Intake: Oral 476 240 Other: Voiding Method Toilet Toilet Toilet - Exam agent is awake, comfortable, no acute distress. Examination of the heart S1 and S2 Examination of the lungs bilateral breath sounds are heard Abdomen is soft nontender Examination lower extremity shows no edema [employer] exam grossly intact - Labs CBC & Chem 7: 12/07/23 06:23 12/09/23 11:07 Labs: Microbiology - Last 24 Hours (Table) 12/06/23 11:00 Gram Stain - Final Cyst Wound Culture - Final Assessment and Plan Assessment: 1. Hypovolemic hyponatremia further worsened with the use of thiazide diuretic and NSAID use. Improved with IV hydration. Serum osmolality 262. Urine sodium 70. Urine osmolality 473. Sodium level 141 today. 2. Benign hypertension. 3. Hepatic cyst being followed by surgery. 4. Possible bladder mass. Seen by urology. Cystoscopy outpatient. Plan: encourage increased oral intake, particularly protein. Maintain some degree of free water restriction. Avoid thiazide diuretics.
[2023-12-09 13:52] VITALS: BP 136/79; PULSE 77; TEMP 97.5
--- NOTE | 2023-12-09 18:06 | P.PN ---
Progress Note - Text Progress Note Date: 12/09/23 CHIEF COMPLAINT: Abdominal pain due to hepatic cyst HISTORY OF PRESENT ILLNESS: NAEO ROS: No reports of nausea and vomiting. No fevers or chills. No new chest pain. No productive sputum PHYSICAL EXAM: VITAL SIGNS: Reviewed CONSTITUTIONAL: Well developed and in no acute distress. EYES: Conjuctivae without sclera icterus. Extraocular movements grossly intact. HEAD, EARS, NOSE, THROAT: Moist buccal mucosa. Head is atraumatic, normocephalic. Hears conversational speech. No nasal drainage. RESPIRATORY: Non-labored respirations and equal bilateral excursions. CARDIOVASCULAR: Palpable 2+ radial pulses. ABDOMEN: No peritonitis. Nontender. MUSCULOSKELETAL: No gross deformity of the lower extremities noted. No clubbing. No cyanosis. SKIN: Good skin turgor. Well perfused. NEUROLOGIC: Cranial nerves II through XII grossly intact. No focal or lateralizing signs. PSYCH: Appropriate affect. Alert and oriented to person, place and time. CLINICAL LABS: Reviewed. Labs pending today. ASSESSMENT: 1. Liver cyst with abdominal pain 2. Anemia, new 3. Bladder neoplasm, new per CT scan Urology Following PLAN: 1. Ok for discharge from Surgery Standpoint
== END 2023-12-09 19:15 | disposition home or self-care (01) | DRG 442 ==
LOC: EC 14:57 → 6NMEDSUR 12-05 00:03 → 5NMEDONC 12-05 00:18 → OBSVTOIN 12-05 12:25 → 5NMEDONC 12-05 16:38
PROVIDERS: ADMIT Hospitalist; ATTEND Hospitalist
PROC: 0F903ZX Drainage of Liver, Percutaneous Approach, Diagnostic (ICD-10-PCS; principal; 2023-12-06)
DX: K76.89 Other specified diseases of liver (principal); E87.1 Hypo-osmolality and hyponatremia; D49.4 Neoplasm of unspecified behavior of bladder; D64.9 Anemia, unspecified; I10 Essential (primary) hypertension; Z88.1 Allergy status to other antibiotic agents; E86.1 Hypovolemia; G47.33 Obstructive sleep apnea (adult) (pediatric); X58.XXXA Exposure to other specified factors, initial encounter; T50.2X5A Adverse effect of carbonic-anhydrase inhibitors, benzothiadiazides and other diuretics, initial encounter; T39.395A Adverse effect of other nonsteroidal anti-inflammatory drugs [NSAID], initial encounter; Z87.19 Personal history of other diseases of the digestive system; I73.00 Raynaud's syndrome without gangrene; M19.90 Unspecified osteoarthritis, unspecified site; M41.9 Scoliosis, unspecified; Z90.49 Acquired absence of other specified parts of digestive tract; Z90.710 Acquired absence of both cervix and uterus; Z87.891 Personal history of nicotine dependence
CPT/HCPCS: 36415; 51798; 71045; 74177; 75989; 80048; 80053; 81001; 82150; 83605; 83690; 83735; 83930; 83935; 84145; 84295; 84300; 84443; 84481; 85025; 85610; 85652; 85730; 86140; 87070; 87075; 87205; 93005; 96361; 96372; 96374; 99285

== ENCOUNTER → 2024-02-01 | Outpatient (CLI) | payer MEDICARE ==
[2024-02-01 11:22] VITALS: BP 152/82; PULSE 72; RESP 16; TEMP 98.2
--- NOTE | 2024-02-01 11:36 | P.PROGSL ---
Subjective DATE: 02/01/2024 FOLLOW UP VISIT. Patient with obstructive sleep apnea hypopnea syndrome return to sleep center for follow-up visit. Information from previous visit have been reviewed. Patient is using PAP equipment every night for the whole night, getting PAP supplies in time. The patient does not have significant problems with the mask, PAP unit and humidification. [place] sleepiness scale is 6, which is normal. I checked information from PAP unit. PAP unit pressure 5-10, average 9.9 cm H2O. Usage is 100% for more then 4 hours, average 7.8 hours per night. Leak is 7 l/m, which is in acceptable range. Apnea Hypopnea Index is 0.6, which is normal. MEDICATIONS have been reviewed, please see below. During physical exam: GENERAL: A pleasant patient without any distress. VITAL SIGNS: Please see below, weight is 157 lbs. HEENT: PERRLA, EOMI.low position of soft palate, Mallapati 4 . NECK: Supple. No JVD. LUNGS: Clear to percussion and to auscultation. Good air exchange. No wheezing or rhonchi. HEART: S1, S2 regular. ABDOMEN: Soft and nontender.[] EXTREMITIES: No clubbing or cyanosis. COOK HOUSE LABORER: Awake, alert, and oriented x3. No focal deficit. Impressions: 1. Obstructive sleep apnea-hypopnea syndrome. Patient demonstrated great compliance with treatment, benefiting from treatment. 2. Hypertension. 3. Liver cyst, patient is preparing for surgical treatment. 4. Hypothyroidism. 5. History of anxiety. 6. Mild obesity, BMI 31.0, patient lost 8 pounds comparing with previous visit. Plan: 1. Continue using PAP equipment every night for the whole night. Patient should take your CPAP unit with your when she will go to the hospital for surgical treatment of liver cyst. 2. Sleep hygiene with regular time in bed for at least 7.5-8 hours 3. PAP unit should stay lower then position of the head. 4. Advised patient to remove all remaining water from humidifier canister daily and make it dry after each usage. Refill canister with fresh distilled water before each usage. 5. Watching weight. 6. Precautions related to driving. No driving if feel any sleepiness. 7. I will maintain prescription for PAP supplies including mask, tube, filters. 8. Follow up visit in 6 months or earlier if patient has any problems. Thank you very much for allowing me to participate in the management of your patient. Arthur Barragan MD, PhD, FAASM. Diplomat of [place] [employer], Sleep Medicine Board by [employer] Speech And Language Tutor of [facility] [place] Objective - Vital Signs Vital Signs: Vital Signs Temp 98.2 F 02/01/24 11:21 Pulse 72 02/01/24 11:21 Resp 16 02/01/24 11:21 BP 152/82 02/01/24 11:21 Pulse Ox 98 02/01/24 11:21 FiO2 Intake & Output 01/31/24 02/01/24 02/01/24 18:59 06:59 18:59 Weight 72.121 kg Home Medications: Home Medications Medication Instructions Recorded Confirmed Type Levothyroxine Sodium [Synthroid] 25 mcg PO DAILY 09/11/18 02/01/24 History Losartan Potassium 50 mg PO BID 09/11/18 02/01/24 History amLODIPine [Norvasc] 5 mg PO DAILY 30 Days #30 tab 12/09/23 02/01/24 Rx ALPRAZolam [Xanax] 0.25 mg PO HS PRN 02/01/24 02/01/24 History Cyclobenzaprine [Flexeril] 10 mg PO HS PRN 02/01/24 02/01/24 History
== END ==
LOC: 3 N SLEEP 10:38
PROVIDERS: ATTEND Internal Medicine
CPT/HCPCS: 99212

== ENCOUNTER → 2024-09-26 | Outpatient (CLI) | payer MEDICARE ==
[2024-09-26 10:32] VITALS: BP 139/84; RESP 18; TEMP 98
[2024-09-26 10:33] VITALS: PULSE 78
--- NOTE | 2024-09-26 10:50 | P.PROGSL ---
Subjective DATE: 09/26/2024 FOLLOW UP VISIT. Patient with obstructive sleep apnea hypopnea syndrome return to sleep center for follow-up visit. Information from previous visit have been reviewed. Patient is using PAP equipment every night for the whole night, getting PAP supplies in time. The patient does not have significant problems with the mask, PAP unit and humidification. [place] sleepiness scale is 8. I checked information from PAP unit. PAP unit pressure 5-10, average 9.9 cm H2O. Usage is 100% for more then 4 hours, average 8 hours per night. Leak is in perfect range . Apnea Hypopnea Index is 0.4, which is also perfect. Patient complains of sometimes tiredness and sleepiness during the day. MEDICATIONS have been reviewed, please see below. During physical exam: GENERAL: A pleasant patient without any distress. VITAL SIGNS: Please see below, weight is 163.4 lbs. HEENT: PERRLA, EOMI.low position of soft palate, Mallapati 4 . NECK: Supple. No JVD. LUNGS: Clear to percussion and to auscultation. Good air exchange. No wheezing or rhonchi. HEART: S1, S2 regular. ABDOMEN: Soft and nontender.[] EXTREMITIES: No clubbing or cyanosis. PUBLIC SAFETY TEACHER: Awake, alert, and oriented x3. No focal deficit. Impressions: 1. Obstructive sleep apnea-hypopnea syndrome. Patient demonstrated great compliance with treatment, benefiting from treatment. 2. Mild obesity, BMI 31.8, patient increased weight on 6 pounds comparing with previous visit. 3. Hypertension. 4. Hypothyroidism. 5. History of liver cyst. 6. History of anxiety. I slightly increased maximal AutoPap pressure to 11 cm of water. Plan: 1. Continue using PAP equipment every night for the whole night. 2. Sleep hygiene with regular time in bed for at least 7.5-8 hours 3. PAP unit should stay lower then position of the head. 4. Advised patient to remove all remaining water from humidifier canister daily and make it dry after each usage. Refill canister with fresh distilled water before each usage. 5. Watching weight. 6. Precautions related to driving. No driving if feel any sleepiness. 7. I will maintain prescription for PAP supplies including mask, tube, filters. 8. Follow up visit in 6 months or earlier if patient has any problems. Thank you very much for allowing me to participate in the management of your patient. Arthur Barragan MD, PhD, FAASM. Diplomat of [place] [employer], Sleep Medicine Board by [employer] Line Service Person of [facility] [place] cc: Ray Pastor MD Objective - Vital Signs Vital Signs: Vital Signs Temp 98.0 F 09/26/24 10:31 Pulse 78 09/26/24 10:31 Resp 18 09/26/24 10:31 BP 139/84 09/26/24 10:31 Pulse Ox 97 09/26/24 10:31 FiO2 Intake & Output 09/25/24 09/26/24 09/26/24 18:59 06:59 18:59 Weight 74.049 kg Home Medications: Home Medications Medication Instructions Recorded Confirmed Type Levothyroxine Sodium [Synthroid] 25 mcg PO DAILY 09/11/18 02/01/24 History Losartan Potassium 50 mg PO BID 09/11/18 02/01/24 History amLODIPine [Norvasc] 5 mg PO DAILY 30 Days #30 tab 12/09/23 02/01/24 Rx ALPRAZolam [Xanax] 0.25 mg PO HS PRN 02/01/24 02/01/24 History Cyclobenzaprine [Flexeril] 10 mg PO HS PRN 02/01/24 02/01/24 History
== END ==
LOC: 3 N SLEEP 10:15
PROVIDERS: ATTEND Internal Medicine
DX: G47.33 Obstructive sleep apnea (adult) (pediatric) (principal); I10 Essential (primary) hypertension; E03.9 Hypothyroidism, unspecified; F41.9 Anxiety disorder, unspecified; E66.9 Obesity, unspecified; Z68.31 Body mass index [BMI] 31.0-31.9, adult; Z88.1 Allergy status to other antibiotic agents; Z88.5 Allergy status to narcotic agent; Z87.891 Personal history of nicotine dependence; Z87.19 Personal history of other diseases of the digestive system; Z99.89 Dependence on other enabling machines and devices
CPT/HCPCS: 99212